=== PATIENT | female | born 1950 | race African-American/Black ===

== ENCOUNTER 2019-06-07 16:30 | Outpatient (RCR) | payer OTHER, MEDICARE, SELFPAY ==
[2019-05-04 09:19] VITALS: PULSE 56; RESP 14; O2SAT 96
--- NOTE | 2019-05-04 09:39 | PCCPR ---
Alma Rosa states her RT forearm area occurs in the last 2 wks currently not bothering her. However she plans to see her PCP for this.
[2019-05-04 09:43] VITALS: PULSE 56
--- NOTE | 2019-06-12 10:42 | PCCPR ---
Delicia called yesterday stating that she was told by her physician not to attend cardiac rehab at this time due to the current Coronavirus outbreak.
--- NOTE | 2019-06-13 09:47 | PCCPR ---
Program is temporarily suspended due to COVID outbreak.
--- NOTE | 2019-06-20 11:24 | PCCPR ---
Called pt due to temporary closure of our dept Spoke with Alma Rosa states she is currently working from home. She has been walking regularly in her yard and driveway. She has attempted using some 2 # wts at home and also has 5 lb weights she felt was too heavy at this time. she was also present for our theraband strength trng. Alma Rosa provided us an email to forward her and information pkg for home exercise. Explained she can call us for questions and we will be calling weekly to check on her and if she has any questions.
--- NOTE | 2019-06-27 10:37 | PCCPR ---
Spoke with Alma Rosa this am. 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 She takes walks outside and has been using her stepper, weights, and doing her stretches. She states her daughter has been keeping her active. Will follow up with Alma Rosa next week.
--- NOTE | 2019-07-04 12:03 | PCCPR ---
Called to check in on patient. Left voicemail. Will continue to follow weekly.
--- NOTE | 2019-07-11 13:47 | PCCPR ---
Weekly update call-No questions or concerns at this time.
--- NOTE | 2019-07-18 13:59 | PCCPR ---
Weekly update call-informed patient of continued closure through the month of July due to the extension of the senior living in place order. No questions at this time.
--- NOTE | 2019-08-02 13:03 | PCCPR ---
Starting Bi-Weekly Calls. Spoke with patient. No questions or concerns at this time.
--- NOTE | 2019-08-16 14:59 | PCCPR ---
Spoke with Alma Rosa she is working and tolerating well. She did start on a new medication and her B/P has been better. She has been walking in or out of doors daily.She has an upcoming apt with her PCP and will discuss returning to rehab as an option..
== END 2019-06-07 23:59 | disposition home or self-care (01) ==
LOC: ANHCPREHAB 16:30
PROVIDERS: Visit Provider Specialist
DX: Z95.1 Presence of aortocoronary bypass graft (principal); I25.2 Old myocardial infarction
CPT/HCPCS: 93798

== ENCOUNTER 2019-11-07 16:30 | Outpatient (RCR) | payer OTHER, MEDICARE, SELFPAY ==
[2019-10-17 17:44] LABS: Glucose Point of Care 100 (65-105)
== END 2019-11-12 11:24 | disposition home or self-care (01) ==
LOC: ANHCPREHAB 16:30
PROVIDERS: Visit Provider Specialist
DX: Z95.1 Presence of aortocoronary bypass graft (principal)
CPT/HCPCS: 93798

== ENCOUNTER → 2020-04-16 16:56 | Outpatient (CLI) | payer OTHER, MEDICARE, SELFPAY ==
--- NOTE | ~2020-04-16 | DEXA_ITS ---
Bone Density Report Name: Delicia Brady Age: 69 Sex: Female Ethnicity: Black Date of : 1950 Indication: osteopenia; monitoring treatment; height loss; asthma or emphysema; postmenopausal Referring Provider: BRIGIDA BAUTISTA Study: Bone densitometry was performed. Exam Date: April 16, 2020 Accession number: [id number] Bone Density: Region BMD T-score Z-score Classification AP Spine (L1-L4) 1.035 -0.1 1.1 Normal Femoral Neck (Left) 0.644 -1.8 -0.8 Osteopenia Total Hip (Left) 0.769 -1.4 -0.6 Osteopenia Femoral Neck (Right) 0.679 -1.5 -0.6 Osteopenia Total Hip (Right) 0.769 -1.4 -0.6 Osteopenia Total Hip Mean 0.769 -1.4 -0.6 Osteopenia World Health Organization criteria for BMD impression classify patients as: Normal (T-score at or above -1.0), Osteopenia (T-score between -1.0 and -2.5), or Osteoporosis (T-score at or below -2.5). 10-year Fracture Risk: FRAX not reported because: Treated for osteoporosis Previous Exams: Region Exam Age BMD T-score BMD Change BMD Change Date g/cm2 vs Baseline vs Previous AP Spine(L1-L4) 04/16/2020 69 1.035 -0.1 0.013 -0.007 02/04/2018 67 1.043 0.0 0.020 0.005 06/26/2015 64 1.038 -0.1 0.015 0.000 08/12/2012 62 1.038 -0.1 0.015 0.015 01/16/2010 59 1.022 -0.2 Total Hip(Left) 04/16/2020 69 0.769 -1.4 -0.009 0.006 02/04/2018 67 0.762 -1.5 -0.015 0.003 06/26/2015 64 0.760 -1.5 -0.018 -0.054* 08/12/2012 62 0.814 -1.1 0.036* 0.036* 01/16/2010 59 0.777 -1.3 Total Hip(Right) 04/16/2020 69 0.769 -1.4 -0.023 -0.008 02/04/2018 67 0.777 -1.4 -0.016 0.002 06/26/2015 64 0.775 -1.4 -0.017 -0.062* 08/12/2012 62 0.838 -0.9 0.045* 0.045* 01/16/2010 59 0.793 -1.2 *Denotes significance at 95% confidence level, LSC for AP Spine = 0.022 g/cm2, LSC for Total Hip = 0.027 g/cm2 Clinical Information Provided by Patient: Is being treated for osteoporosis Has used the following medications: Boniva (i.e. ibandronate), Vitamin D, MTV Has the following medical conditions: Asthma or Emphysema Patient maximum height was 59.0 Menopause Age: 49 No regular weight bearing exercise Drinks caffeinated beverages Onset of menses at age 16 Number of children 2
--- NOTE | ~2020-04-16 | MM_ITS ---
EXAMINATION: MM screening jose m BI w scar HISTORY: Screening TECHNIQUE: Craniocaudal and mediolateral oblique 3-D tomosynthesis images were obtained and synthetic 2-D images were generated. CAD analysis was submitted and interpreted. COMPARISON: Comparison to multiple prior studies sequentially, with oldest reviewed study dated 08/29. BREAST PARENCHYMAL COMPOSITION: There are scattered areas of fibroglandular density. FINDINGS: There is no evidence of suspicious mass, calcification, or architectural distortion to sugg est malignancy in either breast. There has been no suspicious interval change. IMPRESSION: 1. No mammographic evidence of malignancy. 2. Recommend routine screening mammography in one year. BI-RADS Category 1: Negative Reviewed, dictated and finalized at location A. R SAMPLE CLERK
== END ==
PROVIDERS: Visit Provider Obstetrics & Gynecology
DX: Z12.31 Encounter for screening mammogram for malignant neoplasm of breast (principal); Z78.0 Asymptomatic menopausal state; M85.852 Other specified disorders of bone density and structure, left thigh; M85.851 Other specified disorders of bone density and structure, right thigh
CPT/HCPCS: 77063; 77067; 77080

== ENCOUNTER → 2021-08-11 16:42 | Outpatient (CLI) | payer OTHER, MEDICARE, SELFPAY ==
--- NOTE | ~2021-08-11 | MM_ITS ---
EXAMINATION: MM screening jose m BI w scar HISTORY: Screening mammogram TECHNIQUE: Craniocaudal and mediolateral oblique 3-D tomosynthesis images were obtained and synthetic 2-D images were generated. CAD analysis was submitted and interpreted. COMPARISON: 04/16/2020, 02/04/2018, 10/01/2015 bilateral screening mammogram examinations BREAST PARENCHYMAL COMPOSITION: There are scattered areas of fibroglandular density. FINDINGS: Stable circumscribed benign intramammary lymph node in the upper outer right breast. There is no evidence of suspicious mass, calcification, or architectural distortion to suggest malignancy i n either breast. There has been no suspicious interval change. IMPRESSION: 1. No mammographic evidence of malignancy. 2. Recommend routine screening mammography in one year. BI-RADS Category 2: Benign finding(s). Reviewed, dictated and finalized at location A.
== END ==
PROVIDERS: Visit Provider Obstetrics & Gynecology
DX: Z12.31 Encounter for screening mammogram for malignant neoplasm of breast (principal)
CPT/HCPCS: 77063; 77067

== ENCOUNTER → 2023-02-28 15:03 | Outpatient (CLI) | payer MEDICARE, OTHER, SELFPAY ==
--- NOTE | ~2023-02-28 | DEXA_ITS ---
Bone Density Report Name: HAYDEE BOLANOS Age: 72 Sex: Female Ethnicity: Black Date of : 1950 Indication: osteopenia; monitoring treatment; height loss; asthma or emphysema; rheumatoid arthritis; secondary osteoporosis; Referring Provider: BRIGIDA BAUTISTA Study: Bone densitometry was performed. Exam Date: February 28, 2023 Accession number: [id number] Bone Density: Region BMD T-score Z-score Classification AP Spine (L1-L4) 1.064 0.2 1.6 Normal Femoral Neck (Left) 0.667 -1.6 -0.6 Osteopenia Total Hip (Left) 0.768 -1.4 -0.5 Osteopenia Femoral Neck (Right) 0.687 -1.5 -0.4 Osteopenia Total Hip (Right) 0.770 -1.4 -0.5 Osteopenia Total Hip Mean 0.769 -1.4 -0.5 Osteopenia World Health Organization criteria for BMD impression classify patients as: Normal (T-score at or above -1.0), Osteopenia (T-score between -1.0 and -2.5), or Osteoporosis (T-score at or below -2.5). 10-year Fracture Risk: FRAX not reported because: Treated for osteoporosis Previous Exams: Region Exam Age BMD T-score BMD Change BMD Change Date g/cm2 vs Baseline vs Previous AP Spine(L1-L4) 02/28/2023 72 1.064 0.2 0.042* 0.029* 04/16/2020 69 1.035 -0.1 0.013 -0.007 02/04/2018 67 1.043 0.0 0.020 0.005 06/26/2015 64 1.038 -0.1 0.015 0.000 08/12/2012 62 1.038 -0.1 0.015 0.015 01/16/2010 59 1.022 -0.2 Total Hip(Left) 02/28/2023 72 0.768 -1.4 -0.010 -0.001 04/16/2020 69 0.769 -1.4 -0.009 0.006 02/04/2018 67 0.762 -1.5 -0.015 0.003 06/26/2015 64 0.760 -1.5 -0.018 -0.054* 08/12/2012 62 0.814 -1.1 0.036* 0.036* 01/16/2010 59 0.777 -1.3 Total Hip(Right) 02/28/2023 72 0.770 -1.4 -0.023 0.000 04/16/2020 69 0.769 -1.4 -0.023 -0.008 02/04/2018 67 0.777 -1.4 -0.016 0.002 06/26/2015 64 0.775 -1.4 -0.017 -0.062* 08/12/2012 62 0.838 -0.9 0.045* 0.045* 01/16/2010 59 0.793 -1.2 *Denotes significance at 95% confidence level, LSC for AP Spine = 0.022 g/cm2, LSC for Total Hip = 0.027 g/cm2 Clinical Information Provided by Patient: Has rheumatoid arthritis Has secondary osteoporosis Is being treated for osteoporosis Has used the following medications: Boniva (i.e. ibandronate), Vitamin D, MTV
== END ==
PROVIDERS: Visit Provider Obstetrics & Gynecology
DX: M85.89 Other specified disorders of bone density and structure, multiple sites (principal); Z78.0 Asymptomatic menopausal state
CPT/HCPCS: 77080

== ENCOUNTER 2023-03-20 01:26 | Inpatient (IN) | payer MEDICARE, OTHER, SELFPAY ==
[2023-03-20] VITALS (19 sets, daily range): BP systolic 136–255; BP diastolic 61–103; PULSE 60–76; RESP 14–22; TEMP 36–36.6; O2SAT 95–99; BMI 31.4
--- NOTE | ~2023-03-20 | NM_ITS ---
EXAMINATION: NM hepatobiliary wo pharm DATE: 03/22/2023 15:06 INDICATION: Acute cholecystitis with upper abdominal pain COMPARISON: None. TECHNIQUE: 5.2 mCi Tc-99m mebrofenin (Choletec) was administered intravenously. Scintigraphic images of the abdomen were obtained for one hour. At the 1 hour time point, the patient drank 8 oz Ensure, and imaging was continued for 60 minutes. Gallbladder ejection fraction was calculated by the technol ogist. FINDINGS: There is normal clearance of radiotracer from the blood pool. There is homogeneous tracer u ptake by the liver. Activity progresses to the bowel and gallbladder. The gallbladder ejection fract ion (GBEF) is indeterminate with continuing accumulation of activity in the gallbladder following Ens ure administration. Note that with this technique, normal GBEF >= 33%. IMPRESSION: 1. Continuing accumulation of activity in the gallbladder even following Ensure administration which would argue against acute cholecystitis but which would be consistent with gallbladder dysfunction o r chronic cholecystitis in the appropriate clinical setting. Reviewed, dictated and finalized at location A. DRY MANAGER IMPRESSION: 1. Continuing accumulation of activity in the gallbladder even following Ensur e administration which would argue against acute cholecystitis but which would be consistent with gallbladder dysfunction or chronic [facility]ole[facility]stitis [facility].
--- NOTE | ~2023-03-20 | US_ITS ---
EXAMINATION: US abdomen limited DATE: 03/22/2023 08:25 INDICATION: Abdominal pain TECHNIQUE: Multiple grayscale and Doppler ultrasound images of the abdomen were obtained. COMPARISON: CT dated 03/21/2023 FINDINGS: The pancreatic head and body are normal in appearance. The pancreatic tail is not visualized. Liver has normal echogenicity and contour, with a smooth surface. No liver lesion identified. No intrahepat ic biliary duct dilation suspected. Portal venous flow was seen in the hepatopetal, normal direction and has normal Doppler waveform. There is edematous wall thickening of the gallbladder. Dependently l ayering hyperechoic gallbladder sludge but no evident shadowing cholelithiasis. Sonographic Delcid si gn was reported as negative by the radio repair teacher. The common bile duct measures 2 mm which is normal. V isualized proximal inferior vena cava is normal. IMPRESSION: 1. Nonspecific gallbladder wall thickening with gallbladder sludge but no evident shadowing cholelith iasis and with negative sonographic Delcid sign. There is equivocal for either acute or chronic patrice cystitis could also be seen atherosclerotic liver, heart or renal failure or other generalized edema forming states. Could consider HIDA scan for further evaluation as clinically indicated. Reviewed, dictated and finalized at location A. TAL FORENSIC ANALYST IMPRESSION: 1. Nonspecific gallbladder wall thickening with gallbladder sludge but no evide nt shadowing cholelithiasis and with negative sonographic Delcid sign. There is equivocal for either acute or chronic cholecystitis could also be seen atheros clerotic liver, heart or renal failure or other generalized edema forming state s. Could consider HIDA scan for further evaluation as clinically indicated.
--- NOTE | ~2023-03-20 | XR_ITS ---
EXAMINATION: XR chest 2V DATE: 03/20/2023 01:57 INDICATION: Chest pain. TECHNIQUE: Frontal and lateral views of the chest were obtained. COMPARISON: Chest 2 views 02/21/2019 FINDINGS: Alexy B lines are noted, consistent with mild pulmonary edema. No pleural effusion or pneu mothorax. Cardiomegaly is noted. There are median sternotomy wires. IMPRESSION: 1. Mild pulmonary edema. 2. Cardiomegaly. Reviewed, dictated and finalized at location A. WORKER
--- NOTE | ~2023-03-20 | CT_ITS ---
EXAMINATION: CT chest abdomen w con DATE: 03/21/2023 14:41 INDICATION: Abd pain, . TECHNIQUE: Computed tomography (CT) of the chest and abdomen was performed with 100 mL Omnipaque-350 intravenous contrast. Automated exposure control and iterative reconstruction technique were employed . The dose-length product was 489.73 mGy-cm. COMPARISON: None FINDINGS: CHEST: Thoracic aorta: No significant dilation or calcification. Lung parenchyma and airways: Motion artifact in the lungs. Mild septal thickening and scattered somew hat dependent groundglass opacity. Thoracic inlet, axillae and chest wall: Left thyroidectomy. Multinodular residual right thyroid gland , measuring up to 1.3 cm, requiring no additional evaluation at this time. Prominent bilateral axilla ry and bilateral subpectoral lymph nodes, not pathologic by chronic. Mediastinum: No mass or lymphadenopathy. Heart and pericardium: Cardiomegaly. Coronary artery calcifications: Moderate. Pleura: No effusion or mass. Thoracic bones: No acute osseous finding in the chest. ABDOMEN: Liver: Diffusely hypodense parenchyma Biliary/Gallbladder: Mild dilation. Pericholecystic fluid/wall edema. Gallbladder wall hyperemia. Dep endent sludge. No bile duct dilation. Pancreas: No mass or duct dilation. Spleen: 1.5 cm hemangioma Adrenals:No mass. Kidneys: No suspicious mass, obstructing stone, or hydronephrosis. Tiny bilateral hypodensities, too small to characterize but most likely represent cysts. Left midpole cyst. GI tract: Moderate distal esophageal and gastric wall edema. No small or large bowel dilation. Normal appendix. Mesentery/Peritoneum: No ascites, mass, or free air. Retroperitoneum: No mass Soft Tissues: Soft tissues and body wall unremarkable. Abdominal bones: No acute osseous finding in the abdomen. IMPRESSION: Gallbladder hydrops with wall edema/pericholecystic fluid, mucosal hyperemia, and biliary sludge. Thi s may represent cholecystitis in the appropriate clinical context. Correlate with right upper quadran t pain and biliary labs. Consider right upper quadrant ultrasound and biliary scanning. Moderate esophagitis/gastritis. Hepatic steatosis. Mild pulmonary edema. Cardiomegaly. Reviewed, dictated and finalized at location K. RDS TECH IMPRESSION: Gallbladder hydrops with wall edema/pericholecystic fluid, mucosal hyperemia, a nd biliary sludge. This may represent cholecystitis in the appropriate clinical context. Correlate with right upper quadrant pain and biliary labs. Consider r ight upper quadrant ultrasound and biliary scanning. Moderate esophagitis/gastritis. Hepatic steatosis. Mild pulmonary edema. Cardiomegaly.
--- NOTE | 2023-03-20 01:27 | ECG_ITS ---
Measurements Intervals [place] Rate: 60 P: 14 OH: 130 QRS: -45 QRSD: 121 T: 36 QT: 478 QTc: 478 Interpretive Statements SINUS RHYTHM POSSIBLE LEFT ATRIAL ENLARGEMENT [-0.1mV P WAVE IN V1/V2] RIGHT BUNDLE BRANCH BLOCK [120+ ms QRS DURATION, UPRIGHT V1, 40+ ms S IN I/aVL/V4/V5/V6] LEFT ANTERIOR FASCICULAR BLOCK [QRS AXIS <= -45, QR IN I, RS IN II] COMPARED TO ECG 02/21/2019 01:04:24 SINUS RHYTHM NOW PRESENT RIGHT BUNDLE-BRANCH BLOCK NOW PRESENT Electronically Signed On 03-20-2023 14:50:14 ASSOCIATE PRODUCT MANAGER by Shanique Wu M.D.
[2023-03-20 01:47] LABS: Basophils Percent Auto 0.4 % (0.2-1.2); Eosinophils Absolute Auto 0.1 K/mm3 (0-0.3); Eosinophils Percent Auto 1.2 % (0-4.4); Hematocrit 40.1 % (37.0-47.0); Hemoglobin 13.7 g/dL (12.0-15.0); Immature Granulocyte Absolute 0.02 K/mm3 (0.00-0.031); Immature Granulocyte Percent A 0.3 % (0-0.5); Lymphocytes Absolute Auto 1.65 K/mm3 (0.9-3.2); Lymphocytes Percent Auto 22.1 % (18.3-44.2); Mean Corpuscular HGB Conc 34.2 g/dl (32-36); Mean Corpuscular Hemoglobin 31.1 pg (26-34); Mean Corpuscular Volume 91.1 fl (80-100); Mean Platelet Volume 9.9 fl (7.4-10.4); Monocytes Absolute Auto 0.4 K/mm3 (0.1-0.6); Monocytes Percent Auto 5.6 % (2.6-8.5); Neutrophils Absolute Auto 5.3 K/mm3 (1.3-6.7); Neutrophils Percent Auto 70.4 % (45.5-73.1); Platelet Count Result 245 k/mm3 (150-375); Red Cell Distribution Width 13.2 % (11.5-14.5); White Blood Count 7.5 K/mm3 (4.5-10.0)
[2023-03-20 01:58] LABS: Alanine Aminotransferase 36 U/L (6-35); Albumin Level 4.8 g/dL (3.5-5.1); Alkaline Phosphatase 71 U/L (38-126); Anion Gap 11 mmol/L (8-16); Aspartate Amino Transferase 35 U/L (14-36); Bilirubin,Total 0.4 mg/dL (0.2-1.3); Blood Urea Nitrogen 16 mg/dL (7-17); Calcium 9.6 mg/dL (8.4-10.2); Carbon Dioxide 27 mmol/L (22-30); Chloride 107 mmol/L (98-107); Estimated Glomerular Filt Rate 54; Glucose 129 mg/dL (65-110); Lipase 291 U/L (23-300); Potassium 3.9 mmol/L (3.4-5.0); Sodium 145 mmol/L (137-145)
[2023-03-20 02:03] LABS: Partial Thromboplastin Time 25.7 SECONDS (22.3-36.8); Prothrombin Time 13.8 Seconds (11.1-14.7)
[2023-03-20 02:09] LABS: Troponin I < 0.012 ng/mL (0.000-0.034)
[2023-03-20] MEDS: ASPIRIN 81 MG CHEWABLE TABLET 324 MG PO (04:33)
--- NOTE | 2023-03-20 04:36 | PC.NURSE ---
0437 - 1st dose SL Nitro given. Pt rates pain 5/10. BP 255/101 0445 - 2nd dose SL Nitro given. Pt rates pain 4/10. BP 201/103 0450 - 3rd dose SL Nitro given. Pt rates pain 3/10. BP 194/99
[2023-03-20] MEDS: NITROGLYCERIN SL 0.4 MG TABLET SUBLINGUAL (04:37)
[2023-03-20] MEDS: MORPHINE SULFATE (*CRX) 4 MG/ML INJ IV PUSH (04:51)
[2023-03-20 04:52] LABS: Troponin I < 0.012 ng/mL (0.000-0.034)
--- NOTE | 2023-03-20 05:53 | ED.GENADULT ---
HPI - General Adult General Chief complaint: Chest Pain Stated complaint: Chest pain Time Seen by Provider: 03/20/23 04:05 History of Present Illness HPI narrative: Patient is a 9-year-old female who presents emergency department with chief complaint of chest discomfort. Patient reports that she started having pain felt like a tight band around her chest radiating to her back patient states that she had some nausea and vomiting with this the patient reports that the symptoms are not improved by anything Related Data Home Medications Medication Instructions Recorded Confirmed aspirin 81 mg tablet,delayed 81 mg PO DAILY 02/21/19 04/06/22 release (Adult Low Dose Aspirin) atorvastatin 40 mg tablet 40 mg PO HS 02/21/19 04/06/22 clonidine HCl 0.1 mg tablet 0.1 mg PO HS 02/21/19 04/06/22 doxazosin 4 mg tablet 4 mg PO HS 02/21/19 04/06/22 hydroxychloroquine 200 mg tablet 200 mg PO DAILY 02/21/19 04/06/22 losartan 100 mg tablet 100 mg PO DAILY 02/21/19 04/06/22 triamcinolone acetonide 0.1 % 1 applic dental TID PRN Cold Sores 02/21/19 04/06/22 dental paste albuterol sulfate 90 mcg/actuation inhalation 05/04/19 04/06/22 aerosol inhaler (ProAir HFA) furosemide 40 mg tablet (Lasix) 40 mg PO BID 10/18/19 04/06/22 potassium chloride 20 mEq 20 meq PO BID 10/18/19 04/06/22 tablet,extended release carvedilol 25 mg tablet 25 mg PO Q12H 02/19/21 04/06/22 clopidogrel 75 mg tablet 75 mg PO DAILY 02/19/21 04/06/22 diltiazem HCl 240 mg capsule,24 240 mg PO DAILY 02/19/21 04/06/22 hr,extended release (Tiazac) fluticasone propionate 220 1 puff inhalation Q12H 02/19/21 04/06/22 mcg/actuation HFA aerosol inhaler (Flovent HFA) Allergies Allergy/AdvReac Type Severity Reaction Status Date / Time No Known Allergies Allergy Verified 03/20/23 04:00 Review of Systems Review of Systems: A 10 system review of systems was completed on the patient and is negative except for what is stated in the HPI. Nursing and ancillary documentation was reviewed. [facility] Past Medical History Medical History Asthma History of one miscarriage HTN (hypertension) Hyperlipidemia Lupus (systemic lupus erythematosus) Osteoporosis Surgical History Surgical History H/O section x2 H/O dilation and curettage H/O heart bypass surgery S/P partial thyroidectomy Tubal ligation status Family History Family History Mother Acute myocardial infarction Hypertension Father Cerebrovascular accident Hypertension Congestive heart failure Mental illness in member of household Chronic kidney disease Sibling Hypertension Sibling Hypertension Social History Social History Smoking status: Never smoker Second hand tobacco smoke exposure: No Alcohol intake: never Substance use: never Gender identity (if verbalized by the patient): Female Spiritual care concerns: No Agree to blood products: Yes Exam Narrative: GENERAL: Well-appearing, well-nourished, and in no acute distress. HEAD: Normocephalic, atraumatic. EYES: PERRLA and EOMI. ENT: Nares clear, no rhinorrhea or epistaxis. Mucous membranes moist. NECK: Supple. CHEST: Clear to auscultation. No respiratory distress. HEART: Regular rate and rhythm. No murmur heard. Normal peripheral pulses. ABDOMEN: Soft, nontender, nondistended, normal active bowel sounds. EXTREMITIES: Normal range of motion. No edema. SKIN: Warm, dry, no rash. NEURO: No focal deficits. Alert and oriented x3. PSYCH: Normal mood and affect. Course Vital Signs Vital signs: Vital Signs Temperature 36.4 C L 03/20/23 01:29 Pulse Rate 60 03/20/23 01:29 Respiratory Rate 19 03/20/23 01:29 Blood Pressure 155/97 H 03/20/23 01:29 Pu
[2023-03-20 07:51] LABS: Troponin I < 0.012 ng/mL (0.000-0.034)
--- NOTE | 2023-03-20 08:27 | PC.NURSE ---
This RN spoke w/DR. Demarco about pt BP of 203/96 to be given hydralazine. stated he wants her systolic BP to be 180's-190's.
[2023-03-20] MEDS: hydrALAZINE HCL 20 MG/ML VIAL 10 MG IV PUSH (08:46)
--- NOTE | 2023-03-20 11:03 | ADMGEN ---
This patient, Delicia Brady, was admitted to 2 Medical Room 261-01. Patient/family oriented to hospital policies and general routines including ID bracelet, bed and alarms, visiting hours, pain management, procedures, bathroom and other care routines, personal items, smoking policy, room service/diet, and visiting hours. Information on how to activate the Rapid Response Team has been discussed. Patient/Family are encouraged to report perceived risks to care and to ask questions if they do not understand what they are told or what they should do. Report taken from Andrés ELIZONDO in ED
--- NOTE | 2023-03-20 13:45 | PM.IMHP ---
H&P: HPI History of Present Illness Date/Time: 03/20/23 13:45 Chief Complaint: Chest pain. Narrative: This is a very pleasant 72-year-old female with coronary artery disease status post 4 vessel bypass February 2019, hypertension, hyperlipidemia, chronic kidney disease, and systemic lupus erythematosus who presented to the emergency department from home for evaluation of chest pain. The patient provides the following history. Last evening she had [employer] for dinner and sat down to watch television for the evening before going to bed. At about 21:30 however she developed pain in the upper abdominal/lower chest area which she describes as feeling as though a tight band were around that area. She thought maybe it was due to her bra being too tight but it did not improve when she took it off. Shortly thereafter she developed nausea and she reports having several episodes of emesis due to the pain. She became worried given her cardiac history and came to the ED for evaluation. She has never had similar symptoms. She has no known history of gallbladder disease, pancreatitis, or peptic ulcers. She also denies fever, chills, sweats, lightheadedness, exertional chest pain, shortness a breath, and hematemesis. Her symptoms have not returned. In the ED: She was afebrile on arrival. Blood pressure was high, as high as 255/101. Initial troponin was negative. EKG showed a normal sinus rhythm with no ST elevations or depressions. CMP, CBC, and lipase were reviewed and are pretty unremarkable. She received nitroglycerin 0.4 mg sublingual, 4 mg IV morphine, and 10 mg IV hydralazine and she has been without nausea and pain since that time. She is being admitted overnight for close monitoring. Review of Systems Review of Systems: Twelve systems were reviewed and are negative except for as per HPI. [facility] Past Medical History Medical History (Updated 03/20/23 @ 22:02 by Julia Taylor PA-C) Asthma Chronic kidney disease, stage 3 Coronary artery disease Status post 4 vessel bypass in February 2019. Hyperlipidemia Hypertension Osteoporosis Systemic lupus erythematosus Surgical History Surgical History (Updated 03/20/23 @ 13:48 by Julia Taylor PA-C) History of 2 sections History of dilation and curettage History of four vessel coronary artery bypass graft (02/2019) History of partial thyroidectomy History of tubal ligation Family History Family History Mother Acute myocardial infarction Hypertension Father Cerebrovascular accident Hypertension Congestive heart failure Mental illness in member of household Chronic kidney disease Sibling Hypertension Sibling Hypertension Social History Social History (Updated 03/20/23 @ 13:49 by Julia Taylor PA-C) Social History: Surrogate medical decision maker: David Brady, spouse. Code status: Full code. Smoking status: Never smoker Second hand tobacco smoke exposure: No Alcohol intake: never Substance use: never Do You Feel Safe in your Home?: Yes Lack of Transportation: YES Lack of Food: Never True Current Housing: I Have Housing Concerned About Future Housing: No Difficulty Paying Gas/Electric Bills: No Difficulty Paying for Meds: No Currently Unemployed: No Education: Master's Degree or Higher Difficulty w/ Childcare or Family Care: No Additional living arrangements comments: Lives with spouse in [place]. Additional occupation/education comments: [employer]. Spiritual care concerns: No Agree to blood products: Yes Meds Home Medications and Allergies Home Medications Medication Instructions Recorded Confirmed Type aspirin 81 mg tablet,delayed 81 mg PO DAILY 02/21/19 03/20/23 History release (Adult Low Dose Aspirin) atorvastatin 40 mg tablet 40 mg PO HS 02/21/19 03/20/23 History clonidine HCl 0.1 mg tablet 0.1 mg PO HS
[2023-03-20] MEDS: dilTIAZem HCL CD 240 MG CAP.24HR PO (16:58)
[2023-03-20] MEDS: POTASSIUM CHLORIDE 20 MEQ ER TABLET PO (16:59)
[2023-03-20] MEDS: CLOPIDOGREL BISULFATE 75 MG TABLET PO (16:59)
[2023-03-20] MEDS: FUROSEMIDE 40 MG TABLET PO (16:59)
[2023-03-20] MEDS: LOSARTAN POTASSIUM 100 MG TABLET PO (16:59)
[2023-03-20] MEDS: cloNIDine HCL 0.1 MG TABLET PO (20:26)
[2023-03-20] MEDS: carvediloL 25 MG TABLET PO (20:26)
[2023-03-20] MEDS: DOXAZOSIN MESYLATE 4 MG TABLET PO (20:26)
[2023-03-20] MEDS: ATORVASTATIN 40 MG TABLET PO (20:26)
[2023-03-21] VITALS (10 sets, daily range): BP systolic 133–169; BP diastolic 59–67; PULSE 54–62; RESP 18–20; TEMP 36.2–36.6; O2SAT 97–98
[2023-03-21 05:53] LABS: Hemoglobin 12.2 g/dL (12.0-15.0); Mean Corpuscular Hemoglobin 30.8 pg (26-34); Mean Corpuscular Volume 93.4 fl (80-100); Mean Platelet Volume 10.4 fl (7.4-10.4); Platelet Count Result 218 k/mm3 (150-375); Red Blood Count 3.96 M/mm3 (4.2-5.4); Red Cell Distribution Width 13.2 % (11.5-14.5); White Blood Count 6.3 K/mm3 (4.5-10.0)
[2023-03-21 06:02] LABS: Anion Gap 8 mmol/L (8-16); Blood Urea Nitrogen 13 mg/dL (7-17); Calcium 8.7 mg/dL (8.4-10.2); Carbon Dioxide 24 mmol/L (22-30); Chloride 109 mmol/L (98-107); Estimated Glomerular Filt Rate > 60; Glucose 90 mg/dL (65-110); Magnesium 1.8 mg/dL (1.6-2.3); Sodium 141 mmol/L (137-145)
[2023-03-21 06:34] LABS: Thyroid Stimulating Hormone Reflex 0.779 uIU/mL (0.465-4.68)
[2023-03-21] MEDS: CLOPIDOGREL BISULFATE 75 MG TABLET PO (09:36)
[2023-03-21] MEDS: carvediloL 25 MG TABLET PO ×2 (09:36→20:46)
[2023-03-21] MEDS: ASPIRIN 81 MG ENTERIC TABLET PO (09:36)
[2023-03-21] MEDS: POTASSIUM CHLORIDE 20 MEQ ER TABLET PO ×2 (09:36→17:12)
[2023-03-21] MEDS: HYDROXYCHLOROQUINE SULFATE 200 MG TABLET PO (09:37)
[2023-03-21] MEDS: dilTIAZem HCL CD 240 MG CAP.24HR PO (09:37)
[2023-03-21] MEDS: FUROSEMIDE 40 MG TABLET PO ×2 (09:37→17:12)
[2023-03-21] MEDS: LOSARTAN POTASSIUM 100 MG TABLET PO (09:37)
--- NOTE | 2023-03-21 12:09 | PM.IMPN ---
Progress Note: A&P Assessment and Plan (1) Chest pain: Code(s): R07.9 - Chest pain, unspecified Status: Acute Assessment and Plan: resolved from elevated BP troponin negative monitor (2) Upper abdominal pain: Code(s): R10.10 - Upper abdominal pain, unspecified Status: Acute Assessment and Plan: RUQ tenderness with positive Delcid's sign CT AP and US abd pending PRN pain control (3) Hypertensive urgency: Code(s): I16.0 - Hypertensive urgency Status: Acute Assessment and Plan: BP controlled continue home meds (4) Coronary artery disease: Code(s): I25.10 - Atherosclerotic heart disease of [place] coronary artery without angina pectoris Status: Acute (5) Hypertension: Code(s): I10 - Essential (primary) hypertension Status: Acute Assessment and Plan: continue home meds (6) Chronic kidney disease, stage 3: Code(s): N18.30 - Chronic kidney disease, stage 3 unspecified Status: Acute (7) Abdominal pain: Code(s): R10.9 - Unspecified abdominal pain Status: Acute Plan Awaiting Abd and imaging continue close monitoring DVT prophylaxis on Sq lovenox Subjective Date/time seen: 03/21/23 12:09 Interval history: patient complained of abd pain, no chest pain BP better controlled this morning Patient noted that BP is usually elevated and closely follows PCP and cardiology Review of Systems Review of Systems: Twelve systems were reviewed and are negative except for as per HPI. Exam Narrative: General: Well-developed, nontoxic-appearing female sitting up in bed in no distress. Weight: 66 kg. BMI: 31.5. HEENT: Normocephalic, atraumatic. PERRL, EOMI. Sclera anicteric. Oral mucosa moist. Oropharynx clear. Neck: Supple. No JVD. Respiratory: Lungs are clear to auscultation bilaterally. Cardiovascular: Regular rate and rhythm with S1-S2. Gastrointestinal: Abdomen is soft, nontender, and nondistended with positive bowel sounds. Negative Delcid sign. Skin: Warm and dry. No rash or lesions on limited exam. Extremities: No cyanosis, clubbing, or edema. Radial and pedal pulses intact. Neurological: Alert. Cranial nerves 2-12 are grossly intact. No gross focal deficits to casual conversation. Psychiatric: Pleasant and cooperative with normal mood and affect. Judgment and insight intact. Objective Data Vital Signs Vital Signs: Vital Signs - 24 hr 03/20/23 12:38 03/20/23 12:39 03/20/23 15:12 Temperature 97.9 F Pulse Rate 74 Respiratory Rate 16 Blood Pressure 164/78 H 136/61 Pulse Oximetry 97 Oxygen Delivery Room Air 03/20/23 16:00 03/20/23 20:26 03/20/23 20:00 Temperature 97.5 F L Pulse Rate 65 73 69 Respiratory Rate 18 Blood Pressure 176/76 H Pulse Oximetry 96 Oxygen Delivery 03/20/23 20:10 03/20/23 20:00 03/20/23 23:51 Temperature 96.8 F L Pulse Rate 72 64 Respiratory Rate 20 Blood Pressure 166/78 H Pulse Oximetry 97 Oxygen Delivery Room Air 03/21/23 00:00 03/21/23 03:00 03/21/23 04:03 Temperature 97.2 F L Pulse Rate 60 62 57 L Respiratory Rate 18 Blood Pressure 160/67 H Pulse Oximetry 98 Oxygen Delivery 03/21/23 08:00 03/21/23 09:36 03/21/23 12:00 Temperature 97.4 F L 97.6 F Pulse Rate 54 L 54 L 56 L Respiratory Rate 18 20 Blood Pressure 148/61 H 147/66 H Pulse Oximetry 97 97 Oxygen Delivery Intake/Output Intake/Output: Intake & Output 03/18/23 03/19/23 03/20/23 03/21/23 23:59 23:59 23:59 23:59 Intake Total 540 626 Output Total 600 Balance -60 626 Meds/Results Medications: Active Medications Generic Name Dose Route Start Last Admin Trade Name Freq PRN Reason Stop Dose Admin Albuterol 1 puff 03/20/23 14:27 Albuterol Sulfate (*Sp) Aerosol 1 Puff INHALATION PRN PRN Wheezing Aspirin 81 mg 03/21/23 09:00 03/21/23 09:36 Aspirin 81 Mg Enteri
--- NOTE | 2023-03-21 12:13 | PCRCNOTE ---
Window of time for administration has passed. See next scheduled administration.
[2023-03-21] MEDS: POTASSIUM CHLORIDE 20 MEQ PACKET (FOR LIQUID) 40 MEQ PO (17:12)
[2023-03-21] MEDS: PIPERACILLN/TAZ 3.375GM/NS50ML 3.375 GM/50 ML BAG IVPB ×2 (17:30→20:45)
[2023-03-21] MEDS: ATORVASTATIN 40 MG TABLET PO (20:46)
[2023-03-21] MEDS: cloNIDine HCL 0.1 MG TABLET PO (20:46)
[2023-03-21] MEDS: DOXAZOSIN MESYLATE 4 MG TABLET PO (20:46)
[2023-03-21] MEDS: FLUTICASONE PROP 220 MCG (*SP) 12 GM INHALER 1 PUFF INHALATION (20:47)
[2023-03-21] MEDS: ALBUTEROL SULFATE (*SP) AEROSOL 1 PUFF INHALATION (20:52)
[2023-03-22] VITALS (8 sets, daily range): BP systolic 134–175; BP diastolic 62–85; PULSE 51–66; RESP 14–18; TEMP 36.1–36.6; O2SAT 96–100
[2023-03-22] MEDS: PIPERACILLN/TAZ 3.375GM/NS50ML 3.375 GM/50 ML BAG IVPB ×3 (03:55→17:00)
[2023-03-22 05:59] LABS: Basophils Percent Auto 0.6 % (0.2-1.2); Eosinophils Absolute Auto 0.2 K/mm3 (0-0.3); Eosinophils Percent Auto 3.1 % (0-4.4); Hematocrit 35.5 % (37.0-47.0); Hemoglobin 12.1 g/dL (12.0-15.0); Immature Granulocyte Absolute 0.01 K/mm3 (0.00-0.031); Immature Granulocyte Percent A 0.2 % (0-0.5); Lymphocytes Absolute Auto 2.48 K/mm3 (0.9-3.2); Lymphocytes Percent Auto 40.2 % (18.3-44.2); Mean Corpuscular HGB Conc 34.1 g/dl (32-36); Mean Corpuscular Hemoglobin 31.2 pg (26-34); Mean Corpuscular Volume 91.5 fl (80-100); Mean Platelet Volume 10.2 fl (7.4-10.4); Monocytes Absolute Auto 0.5 K/mm3 (0.1-0.6); Monocytes Percent Auto 7.8 % (2.6-8.5); Neutrophils Percent Auto 48.1 % (45.5-73.1); Platelet Count Result 215 k/mm3 (150-375); Red Blood Count 3.88 M/mm3 (4.2-5.4); Red Cell Distribution Width 13.2 % (11.5-14.5); White Blood Count 6.2 K/mm3 (4.5-10.0)
[2023-03-22 06:12] LABS: Alanine Aminotransferase 30 U/L (6-35); Albumin Level 3.4 g/dL (3.5-5.1); Alkaline Phosphatase 56 U/L (38-126); Anion Gap 9 mmol/L (8-16); Aspartate Amino Transferase 30 U/L (14-36); Bilirubin,Total 0.6 mg/dL (0.2-1.3); Blood Urea Nitrogen 8 mg/dL (7-17); Calcium 8.4 mg/dL (8.4-10.2); Carbon Dioxide 23 mmol/L (22-30); Chloride 109 mmol/L (98-107); Estimated Glomerular Filt Rate > 60; Glucose 88 mg/dL (65-110); Potassium 3.3 mmol/L (3.4-5.0); Sodium 141 mmol/L (137-145)
[2023-03-22] MEDS: FUROSEMIDE 40 MG TABLET PO ×2 (09:12→16:58)
[2023-03-22] MEDS: carvediloL 25 MG TABLET PO (09:12)
[2023-03-22] MEDS: POTASSIUM CHLORIDE 20 MEQ ER TABLET PO ×2 (09:13→16:58)
[2023-03-22] MEDS: ASPIRIN 81 MG ENTERIC TABLET PO (09:13)
[2023-03-22] MEDS: CLOPIDOGREL BISULFATE 75 MG TABLET PO (09:13)
[2023-03-22] MEDS: HYDROXYCHLOROQUINE SULFATE 200 MG TABLET PO (09:13)
[2023-03-22] MEDS: LOSARTAN POTASSIUM 100 MG TABLET PO (09:13)
[2023-03-22] MEDS: dilTIAZem HCL CD 240 MG CAP.24HR PO (09:13)
[2023-03-22] MEDS: ENOXAPARIN 40 MG/0.4 ML SYRINGE SUB-Q (09:14)
--- NOTE | 2023-03-22 09:58 | PM.CNGS ---
Assessment and Plan Assessment and plan (1) Biliary colic: Code(s): K80.50 - Calculus of bile duct without cholangitis or cholecystitis without obstruction Status: Acute Assessment and Plan: The patient's presentation of RUQ abdominal and chest pain is consistent with biliary colic. CT and US results reviewed and are equivocal for acute versus chronic cholecystitis with gallbladder sludge. No evident cholelithiasis on ultrasound or CT. HIDA scan ordered. Her abdominal pain has resolved. She has mild tenderness in the RUQ but no peritoneal signs. WBC and LFTS normal. She was tolerating her diet this morning without any recurrent symptoms. Discussed nonoperative and surgical treatment options with the patient in detail. Patient would prefer trying to set up her surgery as an outpatient. Since she is currently taking clopidogrel and her abdominal pain has resolved, it would be reasonable to try advancing her diet and discharging her when medically stable on a low fat diet. We will set her up as an outpatient for a laparoscopic cholecystectomy, possible open, under general anesthesia by Dr. Lyons. We discussed the recommendations of following a low fat diet until she has her surgery. (2) Sludge in gallbladder: Code(s): K82.8 - Other specified diseases of gallbladder Status: Acute (3) Antiplatelet or antithrombotic long-term use: Code(s): Z79.02 - custodial (current) use of antithrombotics/antiplatelets Status: Acute Assessment and Plan: Currently taking clopidogrel, which increases bleeding risks for surgery. Would be ideal to have this held for at least 5 days prior to proceeding with a cholecystectomy, which we can plan as an outpatient. See plan above. (4) Coronary artery disease: Code(s): I25.10 - Atherosclerotic heart disease of [place] coronary artery without angina pectoris Status: Chronic Assessment and Plan: S/p CABG in February 2019. Follows with Dr. Allen as her [employer]. (5) Chronic kidney disease, stage 3: Code(s): N18.30 - Chronic kidney disease, stage 3 unspecified Status: Chronic (6) Hypertension: Code(s): I10 - Essential (primary) hypertension Status: Chronic Assessment and Plan: Presented with hypertensive urgency and has improved. BP more controlled. Continue management per Hospitalist. (7) Systemic lupus erythematosus: Code(s): M32.9 - Systemic lupus erythematosus, unspecified Status: Chronic Assessment and Plan: Patient takes hydroxychloroquine for her lupus. Plan I have discussed the patient's case and plan of care with Dr. Lyons. Thank you for allowing us to see the patient in consultation and we will continue to follow along with you. History of Present Illness Consult details Consult date: 03/22/23 Reason for consult: other (Gallbladder hydrops on imaging, possible acute cholecystitis) Requesting physician: Lynne Aggarwal MD Narrative: This is a 72-year-old woman with a history of coronary artery disease status post four-vessel CABG on clopidogrel, lupus, asthma, and hypertension, who presented to the emergency department with complaints of right-sided chest pain, nausea, and vomiting. The patient developed a ?banding-like? pain underneath her right ribs after eating fried chicken 3 nights ago. Her pain progressively worsened throughout the night and she developed nausea and vomiting. She denies ever having this pain in the past. She was concerned this was related to a cardiac issue and presented to the ER for further evaluation on 03/20/23. Labs showed a normal white blood cell count and normal LFTs. Troponin negative x3. Chest x-ray showed mild pulmonary edema and cardiomegaly. She was afebrile in the ED. Her blood pressure was as high as 255/101 in the ER. EKG without any ischemic changes. She received nitroglycerin sublingual and IV morphine. Following these medications, her pain improved
--- NOTE | 2023-03-22 12:42 | PM.IMPN ---
Progress Note: A&P Assessment and Plan (1) Chest pain: Code(s): R07.9 - Chest pain, unspecified Status: Acute Assessment and Plan: resolved from elevated BP troponin negative monitor (2) Upper abdominal pain: Code(s): R10.10 - Upper abdominal pain, unspecified Status: Acute Assessment and Plan: abd pain improving CT AP showed GB hydrops with edema andd pericholecystic fluid, mucosal hyperemia and biliary sludge US Abd showed non specific GB wall thicjening and sludge, negative delcid's sign HIDA scan pending continue Zosyn adn monitor cultures GEn surgery following, plan per result of HIDA scan (3) Hypertensive urgency: Code(s): I16.0 - Hypertensive urgency Status: Acute Assessment and Plan: BP better controlled patient has Hypertension difficult to controlled at baseline and she follows closely with her PCP and cardiology, stated that her bP lives around 160-170 SBP despite being on multiple meds continue home meds (4) Coronary artery disease: Code(s): I25.10 - Atherosclerotic heart disease of [place] coronary artery without angina pectoris Status: Chronic (5) Hypertension: Code(s): I10 - Essential (primary) hypertension Status: Chronic Assessment and Plan: continue home meds (6) Chronic kidney disease, stage 3: Code(s): N18.30 - Chronic kidney disease, stage 3 unspecified Status: Chronic Plan Awaiting Abd and imaging continue close monitoring DVT prophylaxis on Sq lovenox Subjective Date/time seen: 03/22/23 12:42 Interval history: patient complained of abd pain, no chest pain BP better controlled this morning Patient noted abd pain improved markedly HIDA scan pending Gen surgery consulted Review of Systems Review of Systems: Twelve systems were reviewed and are negative except for as per HPI. Exam Narrative: General: Well-developed, nontoxic-appearing female sitting up in bed in no distress. Weight: 66 kg. BMI: 31.5. HEENT: Normocephalic, atraumatic. PERRL, EOMI. Sclera anicteric. Oral mucosa moist. Oropharynx clear. Neck: Supple. No JVD. Respiratory: Lungs are clear to auscultation bilaterally. Cardiovascular: Regular rate and rhythm with S1-S2. Gastrointestinal: Abdomen is soft, nontender, and nondistended with positive bowel sounds. Negative Delcid sign. Skin: Warm and dry. No rash or lesions on limited exam. Extremities: No cyanosis, clubbing, or edema. Radial and pedal pulses intact. Neurological: Alert. Cranial nerves 2-12 are grossly intact. No gross focal deficits to casual conversation. Psychiatric: Pleasant and cooperative with normal mood and affect. Judgment and insight intact. Objective Data Vital Signs Vital Signs: Vital Signs - 24 hr 03/21/23 15:57 03/21/23 16:00 03/21/23 19:32 Temperature 97.8 F 97.8 F Pulse Rate 55 L 56 L 56 L Respiratory Rate 20 20 Blood Pressure 133/59 L 169/64 H Pulse Oximetry 97 97 Oxygen Delivery 03/21/23 20:00 03/22/23 00:00 03/22/23 04:00 Temperature 97.6 F 96.9 F L Pulse Rate 57 L 51 L 57 L Respiratory Rate 18 18 Blood Pressure 134/65 143/62 H Pulse Oximetry 96 98 Oxygen Delivery 03/21/23 20:00 03/22/23 00:00 03/22/23 04:00 Temperature Pulse Rate 57 L 52 L 65 Respiratory Rate 18 Blood Pressure Pulse Oximetry 98 Oxygen Delivery Room Air 03/22/23 09:11 03/22/23 09:12 Temperature 97 F L Pulse Rate 54 L 54 L Respiratory Rate 14 Blood Pressure 175/85 H Pulse Oximetry 100 Oxygen Delivery Intake/Output Intake/Output: Intake & Output 03/19/23 03/20/23 03/21/23 03/22/23 23:59 23:59 23:59 23:59 Intake Total 540 1910 680 Output Total 600 1350 900 Balance -60 560 -220 Meds/Results Medications: Active Medications Generic Name Dose Route Start Last Admin Trade Name Freq PRN Reason Stop Dose Admin Albuterol 1 puff 03/20/23 14:27
--- NOTE | 2023-03-22 16:57 | PM.DS ---
DS: Admitting Diagnosis Discharge Date 03/22/23 Admitting Diagnosis Hypertensive urgency DS: Discharge Diagnosis Discharge Diagnosis (1) Hypertensive urgency: Code(s): I16.0 - Hypertensive urgency Status: Acute DS: Summary Hospital Course Hospital Course: This is a very pleasant 72-year-old female with coronary artery disease status post 4 vessel bypass February 2019, hypertension, hyperlipidemia, chronic kidney disease, and systemic lupus erythematosus who presented to the emergency department from home for evaluation of chest pain. The patient provides the following history. Last evening she had [employer] for dinner and sat down to watch television for the evening before going to bed. At about 21:30 however she developed pain in the upper abdominal/lower chest area which she describes as feeling as though a tight band were around that area. She thought maybe it was due to her bra being too tight but it did not improve when she took it off. Shortly thereafter she developed nausea and she reports having several episodes of emesis due to the pain. She became worried given her cardiac history and came to the ED for evaluation. She has never had similar symptoms. She has no known history of gallbladder disease, pancreatitis, or peptic ulcers. She also denies fever, chills, sweats, lightheadedness, exertional chest pain, shortness a breath, and hematemesis. Her symptoms have not returned. In the ED: She was afebrile on arrival. Blood pressure was high, as high as 255/101. Initial troponin was negative.? EKG showed a normal sinus rhythm with no ST elevations or depressions. CMP, CBC, and lipase were reviewed and are pretty unremarkable. She received nitroglycerin 0.4 mg sublingual, 4 mg IV morphine, and 10 mg IV hydralazine and she has been without nausea and pain since that time. She is being admitted overnight for close monitoring. Ct scan showed possible GB hydrops and possible acute cholecystitis, US showed questionable acute cholecystitis. HIDA scan showed chronic cholecystitis vs GB dysfunction Surgery evaluated and noted that will scheduled for Cholecystectomy outpatient Patient discharged on 5 more days of Abx to completed 7 days total BP controlled on irving regimen, she does have recalcitrant hypertension whcih she follows closely with PCP and cardiology for. Chest pain resolved F/u with PCP in 3-5 days, f/u gen surgery as intructed Assessment and Plan (1) Chest pain: ?Code(s): R07.9 - Chest pain, unspecified ?Status:?Acute ?Assessment and Plan: resolved from elevated BP troponin negative monitor (2) Upper abdominal pain: ?Code(s): R10.10 - Upper abdominal pain, unspecified ?Status:?Acute ?Assessment and Plan: abd pain improving CT AP showed GB hydrops with edema andd pericholecystic fluid, mucosal hyperemia and biliary sludge US Abd showed non specific GB wall thicjening and sludge, negative paula's sign HIDA scan pending continue Zosyn adn monitor cultures GEn surgery following, plan per result of HIDA scan (3) Hypertensive urgency: ?Code(s): I16.0 - Hypertensive urgency ?Status:?Acute ?Assessment and Plan: BP better controlled patient has Hypertension difficult to controlled at baseline and she follows closely with her PCP and cardiology, stated that her bP lives around 160-170 SBP despite being on multiple meds continue home meds (4) Coronary artery disease: ?Code(s): I25.10 - Atherosclerotic heart disease of [place] coronary artery without angina pectoris ?Status:?Chronic (5) Hypertension: ?Code(s): I10 - Essential (primary) hypertension ?Status:?Chronic ?Assessment and Plan: continue home meds (6) Chronic kidney disease, stage 3: ?Code(s): N18.30 - Chronic kidney disease, stage 3 unspecified ?Status:?Chronic Time Spent with Patient Time attestation: Total time spent providing and/or coordinating discharge services: DS:
== END 2023-03-22 18:00 | disposition home or self-care (01) | DRG 445 ==
LOC: ANHED 07:22 → ANH2MED 10:12
PROVIDERS: Physician Assistant; Admitting Provider Student in an Organized Health Care Education/Training Program; Emergency Provider Emergency Medicine; Visit Provider Internal Medicine
DX: K81.0 Acute cholecystitis (principal); K82.1 Hydrops of gallbladder; K81.1 Chronic cholecystitis; K82.8 Other specified diseases of gallbladder; I16.0 Hypertensive urgency; R07.9 Chest pain, unspecified; I25.10 Atherosclerotic heart disease of native coronary artery without angina pectoris; I12.9 Hypertensive chronic kidney disease with stage 1 through stage 4 chronic kidney disease, or unspecified chronic kidney disease; N18.30 Chronic kidney disease, stage 3 unspecified; E78.5 Hyperlipidemia, unspecified; J45.909 Unspecified asthma, uncomplicated; M32.9 Systemic lupus erythematosus, unspecified; M81.0 Age-related osteoporosis without current pathological fracture; Z95.1 Presence of aortocoronary bypass graft; Z79.82 Long term (current) use of aspirin; Z79.02 Long term (current) use of antithrombotics/antiplatelets
CPT/HCPCS: 36415; 71046; 71260; 74160; 76705; 78226; 80048; 80053; 83690; 83735; 84443; 84484; 85025; 85027; 85610; 85730; 87040; 93005; 94640; 96374; 96375; 99285; A9270; A9537; G0378; J0360; J1650; J2270; J2543; Q9967

== ENCOUNTER 2023-04-14 13:30 | Outpatient (CLI) | payer MEDICARE, OTHER, SELFPAY ==
[2023-04-14 14:13] LABS: Amylase 117 U/L (30-110)
== END 2023-04-14 13:31 | disposition home or self-care (01) ==
LOC: ANHSURGERY 13:42
PROVIDERS: Visit Provider Surgery
DX: K81.1 Chronic cholecystitis (principal); Z01.818 Encounter for other preprocedural examination
CPT/HCPCS: 36415; 82150

== ENCOUNTER 2023-04-18 01:38 | Day surgery (SDC) | payer MEDICARE, OTHER, SELFPAY ==
[2023-04-14 10:20] VITALS: BMI 30.3
--- NOTE | 2023-04-14 10:34 | PC.NURSE ---
PRE-OP INSTRUCTIONS, PLEASE READ CAREFULLY Report to the Outpatient Waiting Room, entrance under the green pavilion located off [facility], at time _1130_ on date _04/18/23_. Planned Procedure Time: __1:30__. Time changes happen often and if your time is changed the preop area will call you the afternoon before. - You and your visitor will be asked to self-screen and do not enter if you have any COVID symptoms. - A mask is optional within the hospital at this time. Patients may have clear liquids (water, carbonated beverages, clear teas, apple juice) until 3 hours prior to surgery (1030 AM) with a maximum of 20 ounces. - No food from midnight until time of surgery Take the following medications with a SIP of water the morning of surgery: _CARVEDILOL, DILTIAZEM, FLOVENT INHALER, & ALBUTEROL INHALER IF NEEDED_ DO NOT STOP ANY OF YOUR OTHER PRESCRIPTION MEDICATIONS PRIOR TO SURGERY ?EXCEPT THE FOLLOWING Medications to discontinue per physician _PT STATES LAST DOSE OF PLAVIX WAS 03/20/23_ Please no make-up, nail mongolian, hairspray, perfume, deodorant, or body powder the day of surgery. No jewelry (including any body piercings) or valuables the day of surgery, leave them at home. Please take a shower or bath the night before, or the morning of, surgery with an antibacterial soap. Wear comfortable, loose fitting clothing. - Jewelry must be removed prior to entering the operating room. Rings and piercings that are not removed may be cut off. - The hospital will not accept responsibility for valuables. - Please leave all valuables, including medications, at home the day of surgery. If you are going home after surgery, a licensed concrete mixing truck driver must drive you home. - NO public transportation without another adult if you receive anesthesia. - We recommend that an adult stay with you for 24 hours following discharge. - We also recommend that you do not drive, make important decision, drink alcoholic beverages, or take any drugs that were not prescribed by your health care provider for at least 24 hours after your discharge time. Follow any additional instructions given to you from your surgeon. If you or anyone in your household have experienced Covid symptoms in the past week, please notify your surgeon or the nurse liaison at the phone number below for possible testing. Telephone instructions given to _PATIENT_and asked if any additional questions and then verbalized understanding. Patient advised to call surgeon office or pre surgery nurse liaison [phone] if any additional questions.
[2023-04-18] VITALS (11 sets, daily range): BP systolic 94–180; BP diastolic 57–76; PULSE 40–60; RESP 14–20; TEMP 36.2–36.3; O2SAT 94–100
--- NOTE | 2023-04-18 10:37 | WPDHPUPDATE1 ---
History and Physical Update Update Date/Time: 04/18/23 10:37 History and Physical has been reviewed, including an updated exam of the patient. There are NO changes in the patient's condition. Risks, benefits, and alternatives have been discussed and questions answered. Patient agrees to proceed with procedure.
[2023-04-18] MEDS: LACTATED RINGERS 1,000 ML 30 ML IV CONT (12:20)
[2023-04-18] MEDS: ACETAMINOPHEN 500 MG TABLET 1000 MG PO (12:20)
[2023-04-18] MEDS: KETOROLAC 15 MG/ML VIAL (*BKC) IV PUSH (12:20)
--- NOTE | 2023-04-18 13:22 | WPDANESEPPF ---
Anes - Initial Pre Proc Eval Procedure: Operation Date: 04/18/23 13:30 Proposed Procedures p Laparoscopic Cholecystectomy - Roxana Lyons MD Date/Time: 04/18/23 13:22 Surgeon: Roxana Lyons MD Pre Op Diagnosis: chronic cholecystitis Patient Data Age: 72 Gender: F Height: 1.45 m Weight: 64.5 kg Last Vital Signs Temp 36.2 C L 04/18/23 12:42 Pulse 57 L 04/18/23 12:42 Resp 14 04/18/23 12:42 BP 180/76 H 04/18/23 12:42 Pulse Ox 100 04/18/23 12:42 O2 Del Method Room Air 04/18/23 12:42 Allergies Allergy/AdvReac Type Severity Reaction Status Date / Time No Known Allergies Allergy Verified 04/18/23 12:49 Home Medications Medication Instructions Recorded Confirmed Type aspirin 81 mg tablet,delayed 81 mg PO DAILY 02/21/19 04/14/23 History release (Adult Low Dose Aspirin) atorvastatin 40 mg tablet 40 mg PO HS 02/21/19 04/14/23 History clonidine HCl 0.1 mg tablet 0.1 mg PO HS 02/21/19 04/14/23 History doxazosin 4 mg tablet 4 mg PO HS 02/21/19 04/14/23 History hydroxychloroquine 200 mg tablet 200 mg PO DAILY 02/21/19 04/14/23 History losartan 100 mg tablet 100 mg PO DAILY 02/21/19 04/14/23 History triamcinolone acetonide 0.1 % 1 applic TID PRN Cold Sores 02/21/19 04/14/23 History dental paste albuterol sulfate 90 mcg/actuation See Rx Instructions .Route 05/04/19 04/14/23 History aerosol inhaler (ProAir HFA) .COMPLEX PRN Wheezing furosemide 40 mg tablet (Lasix) 40 mg PO BID 10/18/19 04/14/23 History potassium chloride 20 mEq 20 meq PO BID 10/18/19 04/14/23 History tablet,extended release ibandronate 150 mg tablet (Boniva) 150 mg PO MONTHLY #3 tabs 01/29/20 04/14/23 Rx carvedilol 25 mg tablet 25 mg PO Q12H 02/19/21 04/18/23 History clopidogrel 75 mg tablet 75 mg PO DAILY 02/19/21 04/14/23 History diltiazem HCl 240 mg capsule,24 240 mg PO DAILY 02/19/21 04/18/23 History hr,extended release (Tiazac) fluticasone propionate 220 1 puff inhalation Q12H 02/19/21 04/14/23 History mcg/actuation HFA aerosol inhaler (Flovent HFA) Patient hx anesthesia problems: none Family hx anesthesia problems: none Results Review: All pre-operative results and documents have been reviewed as part of the pre-operative evaluation. [facility] Past Medical History Medical History Asthma Chronic kidney disease, stage 3 Coronary artery disease Status post 4 vessel bypass in February 2019. Hyperlipidemia Hypertension Osteoporosis Systemic lupus erythematosus Surgical History Surgical History History of 2 sections History of dilation and curettage History of four vessel coronary artery bypass graft (02/2019) History of partial thyroidectomy History of tubal ligation Family History Family History Mother Acute myocardial infarction Hypertension Father Cerebrovascular accident Hypertension Congestive heart failure Mental illness in member of household Chronic kidney disease Sibling Hypertension Sibling Hypertension Social History Social History Social History: Surrogate medical decision maker: David Brady, spouse. Code status: Full code. Smoking status: Never smoker Second hand tobacco smoke exposure: No Alcohol intake: never Substance use: never Substance use type: does not use Do You Feel Safe in your Home?: Yes Lack of Transportation: YES Lack of Food: Never True Current Housing: I Have Housing Concerned About Future Housing: No Difficulty Paying Gas/Electric Bills: No Difficulty Paying for Meds: No Currently Unemployed: No Education: Master's Degree or Higher Difficulty w/ Childcare or Family Care: No Living arrangements: with family Additional living arrangements comments: Lives with spous
[2023-04-18] MEDS: ceFAZolin 2 GM/D5W 50 ML 2 GM/50 ML BAG IVPB (13:29)
[2023-04-18] MEDS: BUPIVACAINE/EPINEPHRINE 0.5% 30 ML VIAL INFILTRATE (13:57)
--- NOTE | 2023-04-18 14:24 | P.OP_ITS ---
Procedure Note - Detailed Date of Procedure 04/18/23 Pre-op Diagnosis chronic cholecystitis Post-op Diagnosis Same Procedure Performed Laparoscopic cholecystectomy Surgeon Roxana Lyons MD Anesthesia General Indications 72-year-old female presented to the office complaining of postprandial right upper quadrant abdominal pain associated with nausea and vomiting. Workup including imaging significant for cholecystitis. Findings cholecystitis Description of Procedure The patient was taken to the operating room placed in the supine position. After adequate induction of general anesthesia, the patient was prepped and draped in normal sterile fashion. A time-out was then performed to verify the patient's identity as well as the procedure being performed. I then made a 5 mm incision in the infraumbilical region. Through this, a Veress needle was placed into the peritoneal cavity and CO2 gas was then insufflated. After adequate pneumoperitoneum was achieved, the Veress needle was removed and a 5 mm optiview trocar was placed through this incision under direct visualization. I then placed the laparoscope through this trocar site and under direct visualization placed a further 12 mm subxiphoid port as well as 2 additional 5 mm ports in the right upper abdomen. The gallbladder was then identified and was noted to be moderately inflamed and distended. I was able to place a grasper at the dome of the gallbladder and this was retracted anterior and cephalad up over the liver. A 2nd retractor was then placed at the infundibulum and retracted laterally, this allowed visualization of the triangle of Calot. I then was able to visualize the cystic duct in its entirety from its proximal insertion into the gallbladder, to its distal junction with the common hepatic/common bile duct junction. At this point, I carefully skeletonized the proximal cystic duct with the [place] dissector. I then clipped and transected the proximal cystic duct. Next I visualized the cystic artery. Again the artery was skeletonized, clipped, and transected. I then used the Bovie cautery to take down the peritoneal attachments of the gallbladder off the liver bed. This was somewhat difficult given the amount of inflammation in the posterior space. Once the gallbladder specimen was completely detached, an endo-pouch was placed through the 12 mm port site. I then placed the gallbladder specimen into the Endo pouch and removed the endo-pouch from the 12 mm port site. The specimen will now be sent to pathology for further review. I then copiously irrigated the right upper quadrant. Some mild oozing was noted in the liver bed and this was controlled with the bovie cautery. Hemostasis was noted in the liver bed, the clips were noted to be in good position on both the cystic duct stump and the cystic artery stump. No other pathology was noted in the right upper quadrant. I then moved the laparoscope to the subxiphoid port. No iatrogenic injury or other pathology was noted in the lower abdomen. I then closed the 12 mm trocar site under direct visualization using the Dez cone and 0 Vicryl suture. At this point, the abdomen was desufflated and all ports removed. All port sites w ere then closed with 4.O Monocryl subcuticular sutures. Dermabond was placed on each incision. The patient tolerated the procedure well, was extubated in the operating room postoperative and will be transferred to the recovery room in stable condition Estimated Blood Loss 100 Drains No Packing No Pathology Yes Complications No immediate complications Condition Stable Disposition PACU [facility] Billing Surgery - Charge Forward: Surgery Billing
--- NOTE | 2023-04-18 15:01 | SUR.PHASEI ---
1500: Simple mask removed.
--- NOTE | 2023-04-18 15:22 | ECG_ITS ---
Measurements Intervals [place] Rate: 44 P: 14 MS: 142 QRS: -40 QRSD: 117 T: 26 QT: 495 QTc: 428 Interpretive Statements SINUS BRADYCARDIA LEFT AXIS DEVIATION LOW QRS VOLTAGE IN PRECORDIAL LEADS RIGHT BUNDLE BRANCH BLOCK INFERIOR INFARCT, AGE INDETERMINATE BASELINE ARTIFACT- I, II, III, AVL, AVF, V3, V5 ABNORMAL ECG COMPARED TO ECG 03/20/2023 01:35:42 SINUS BRADYCARDIA NOW PRESENT Electronically Signed On 04-18-2023 17:04:28 [employer] MANAGER by Vern Campbell D.O.
== END 2023-04-18 16:50 | disposition home or self-care (01) ==
PROVIDERS: Visit Provider Surgery
PROC: 0FT44ZZ Resection of Gallbladder, Percutaneous Endoscopic Approach (ICD-10-PCS; CPT 47562; principal; 2023-04-18 13:30)
DX: K80.10 Calculus of gallbladder with chronic cholecystitis without obstruction (principal); E78.5 Hyperlipidemia, unspecified; J45.909 Unspecified asthma, uncomplicated; I12.9 Hypertensive chronic kidney disease with stage 1 through stage 4 chronic kidney disease, or unspecified chronic kidney disease; N18.30 Chronic kidney disease, stage 3 unspecified; M81.0 Age-related osteoporosis without current pathological fracture; M32.9 Systemic lupus erythematosus, unspecified; E66.9 Obesity, unspecified; Z68.30 Body mass index [BMI] 30.0-30.9, adult; Z79.82 Long term (current) use of aspirin; Z79.51 Long term (current) use of inhaled steroids; Z79.02 Long term (current) use of antithrombotics/antiplatelets; Z98.890 Other specified postprocedural states; Z95.1 Presence of aortocoronary bypass graft; Z82.49 Family history of ischemic heart disease and other diseases of the circulatory system
CPT/HCPCS: 47562; 88304; 93005; A9270; J0690; J1100; J1596; J1885; J2250; J2405; J2704; J2710; J3010; J7030; J7120

== ENCOUNTER 2024-03-29 16:15 | Outpatient (RCR) | payer MEDICARE, OTHER, SELFPAY | END 2024-03-29 23:59 | disposition home or self-care (01) | LOC: ANHCPREHAB 16:15 | PROVIDERS: Visit Provider Specialist | DX: Z98.61 Coronary angioplasty status (principal) | CPT/HCPCS: 93798 ==

== ENCOUNTER 2024-10-08 16:04 | Emergency (ER) | payer MEDICARE, OTHER, SELFPAY ==
--- NOTE | ~2024-10-08 | CT_ITS ---
EXAMINATION: CT brain wo con DATE: 10/08/2024 19:15 INDICATION: headache, hypertension . TECHNIQUE: Computed tomography (CT) of the head was performed without intravenous contrast. The mA wa s adjusted according to patient size. Iterative reconstruction technique was employed. The dose-lengt h product was 605.33 mGy-cm. COMPARISON: 05/03/2005. FINDINGS: No acute intracranial hemorrhage or extra-axial fluid collection. No hydrocephalus, mass, or herniation. No acute ischemic infarct. Unremarkable dural venous sinus attenuation. No acute osseous abnormality. The aerated spaces are clear. Mild atrophy and chronic white matter change. Atherosclerotic intracranial calcification. Bilateral l ens replacements. IMPRESSION: No acute intracranial process. Reviewed, dictated and finalized at location K.
--- NOTE | ~2024-10-08 | XR_ITS ---
EXAMINATION: XR chest 2V Exam Date/Time: 10/08/2024 17:25 CDT HISTORY: dizziness Comparison: 03/20/2023. RESULT: Lines, tubes, and devices: Intact sternotomy wires. Coronary stenting. Cholecystectomy clips Lungs and pleura: Clear. Cardiomediastinal silhouette: Stable. Other: No acute osseous or upper abdominal finding. IMPRESSION: No acute cardiopulmonary process. Reviewed, dictated and finalized at location K.
--- OUTSIDE RECORDS SUMMARY | 2024-10-08 16:08 | XMS_ITS | Clinical Summary ---
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 Gender Identity Not on file Sexual Orientation Not on file Last Filed Vital Signs Vital Sign Reading Time Taken Comments Blood Pressure 159/77 01/09/2021 7:31 PM CDT Pulse 54 01/09/2021 7:31 PM CDT Temperature 36.7 C (98.1 F) 01/09/2021 7:31 PM CDT Respiratory Rate 20 01/09/2021 7:31 PM CDT Oxygen Saturation 98% 01/09/2021 7:31 PM CDT Inhaled Oxygen Concentration - - Weight 63.5 kg (140 lb) 01/09/2021 7:31 PM CDT Height 144.8 cm (4' 9) 01/09/2021 7:31 PM CDT Body Mass Index 30.3 01/09/2021 7:31 PM CDT Plan of Treatment Health Maintenance Due Date Last Done Comments BREAST CANCER SCREENING 1992 COLORECTAL SCREENING 1997 Colorectal Cancer Screening 1997 FIT-DNA Q 3 years 1997 FIT/FOBT Q 1 year 1997 Flex Sig/CT Colonography Q 5 years 1997 RSV VACCINE (60+ or ) (1 - Risk 60-74 years 1-dose series) 2012 OSTEOPOROSIS SCREENING 2017 DTAP/TDAP/TD VACCINES (2 - T d or Tdap) 04/24/2024 04/24/2014, 04/24/2013 INFLUENZA VACCINE (#1) 2024 0, 02/02/2018, 03/10/2017, Additional history exists ZOSTER VACCINE Completed 02/17/2019, 11/20, 12/07/2018, Additional history exists PNEUMOCOCCAL VACCINE 50+ YEARS Completed 11/23/2019 , 09/08/2018 Insurance [employer] CHOICE POS II MEDICARE
--- OUTSIDE RECORDS SUMMARY | 2024-10-08 16:09 | XMS_ITS | Encounter Summary ---
Author Organization [facility] Address [address] [place] [address] Phone Care Team Providers Care Machine Tailer Name Role Phone Raciel Jimenez MD Primary Care Provider + Richard HAMILTON MD, Lux Vazquez Unavailable John Allen MD Unavailable [phone] Drake Hernandez MD Unavailable [phone] Ashok Hernandez MD Unavailable [phone] Encounter Details Date Type Department Care Team (Late st Contact Info) Description 08/10/2024 Results Follow-Up [facility] [address] [place] [address] Smitha Kruger PA [address] [place] [address] Urinalysis reflex to microscopic, Erythrocyte sedimentation rate, CBC with auto differential, Additional followed-up results: 6 Social History Tobacco Use Types Packs/Day Years Used Date Smoking Tobacco: Never Smokeless Tobacco: Never Alcohol Use Standard Drinks/Week Comments No 0 (1 standard drink = 0.6 oz pur e alcohol) AUDIT-C Answer Date Recorded Q1: How often do you have a drink containing alcohol? Never 07/13/2024 Q2: How many drinks containi ng alcohol do you have on a typical day when you are drinking? Patient does not drink Q3: How often do you have si x or more drinks on one occasion? Never 07/13/2024 PHQ-2 Answer Date Recorded PHQ-2 Total Score (If total score is 3 or more points, staff should administer the PHQ-9) 0 01/02/2024 Personal Safety Answer Date Recorded Have you ever been in or are you currently in a harmful physical or emotional relationship or is someone making you feel afraid or unsafe? 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 documented in this encounter Plan of Treatment Not on file documented as of this encounter Visit Diagnoses Not on filedocumented in this encounter Care Teams Machine Tailer Relationship Specialty Start Date End Date Raciel Jimenez MD [address] [place] [address] PCP - General 06/18/16 Lux Ramos III, MD [address] [place] [address] Rheumatology 04/04/17 John Allen MD [address] [place] [address] Consulting Physician Cardiology 05/16/19 Drake Hernandez MD [facility] [place] [address] Referring Physician Gastroenterology 04/10/21 Ashok Hernandez MD [facility] [place] [address] Consulting Physician Rheumatology 03/28/23 documented as of this encounter
--- OUTSIDE RECORDS SUMMARY | 2024-10-08 16:09 | XMS_ITS | Clinical Summary ---
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 [facility] 3 Date of : 1950 Instrument Name: [id number] Gender: Female Note Status: Finalized Procedure: Colonoscopy Indications: Screening for colorectal malignant neoplasm, Last colonoscopy 10 years ago Providers: Steve Rosenberg M.D. Referring MD: Raciel Jimenez M.D. Medicines: Propofol per Anesthesia Complications: No immediate complications. Estimated Blood Loss: Estimated blood loss was minimal. Procedure: Pre-Anesthesia Assessment: - Prior to the procedure, a History and Physicalwas performed, and patient medications and allergieswere reviewed. The patient is competent. The risks and benefits of the procedure and the sedation optionsand risks were discussed with the patient. Allquestions were answered and informed consent was obtained. Patient identification and proposed procedure were verified by the physician, the nurse and the anesthesiologist in the pre-procedure area. Mental Status Examination: alert and oriented. Airway Examination: normal oropharyngeal airway and neck mobility. Respiratory Examination: clear to auscultation. CV Examination: normal. ASA Grade Assessment: II - A patient with mild systemicdisease. After reviewing the risks and benefits, the patient was deemed in satisfactory condition to undergo the procedure. The anesthesia plan was to use monitored anesthesia care (MAC). Immediately prior to administration of medications, the patient was re-assessed for adequacy to receive sedatives. The heart rate, respiratory rate, oxygen saturations, blood pressure, adequacy of pulmonary ventilation,and response to care were monitored throughout the procedure. The physical status of the patient was re-assessed after the procedure. - The risks and benefits of the procedure and the sedation options and risks were discussed with the patient. All questions were answered and informed consent was obtained. The benefits, risks and alternatives of theprocedure and sedation were discussed and informed consentwas obtained. All questions were answered. Please referto the signed informed consent document in the medical record. The scope was passed under direct vision.The Colonoscope was introduced through the anus and advanced to the the cecum, identified byappendiceal orifice and ileocecal valve. The colonoscopy was performed without difficulty. The patient tolerated the procedure well. The quality of the bowel preparation was evaluated using the BBPS (BostonBowel Preparation Scale) with scores of: Right Colon = 3, Transverse Colon = 3 and Left Colon = 3 (entiremucosa seen well with no residual staining, smallfragments of stool or opaque liquid). The total BBPS score equals 9. The bowel preparation used was Plenvu via split dose instruction. Findings: Five sessile polyps were found in the descending colon, transverse colon, ascending colon and cecum. The polyps were 4 to 8 mm in size. These polyps were removed with a cold snare. Resection and retrieval were complete. Multiple small-mouthed diverticula were found in the sigmoid colonand descending colon. The exam was otherwise without abnormality. Impression: - Five 4 to 8 mm polyps in the descending colon, in the transverse colon, in the ascending colon and in the cecum, removed with a cold snare. Resected and retrieved. - Diverticulosis in the sigmoid colon and in the descending colon. - The examination was otherwise normal. Recommendation: - Discharge patient to home. - Await pathology results. - Repeat colonoscopy in 3 years for surveillance. - Continue present medications. Electronically signed by Steve Rosenberg M.D. Steve Rosenberg M.D. 07/16/2024 11:05:52 AM Number of Addenda: 0 Note Initiated On: 07/16/2024 10:32 AM Scope Withdrawal Time: 0 hours 13 minutes 46 seconds Scope In: 10:41:37 AM Scope Out: 11:02:31 AM Steve Rosenberg MD ENDOSCOPY PROCEDURES Final Re sult * Dexa Axial Skeleton Bone Density 1 or 2 Site (02/28/2023) Anatomical Region Laterality Modality Body N/A Radiographic Daly ging Historical Provider IMG DXA PROCEDURES Final Result * Screening Mammogram Bilateral W Allen (10/15/2022 8:45 AM CDT) Anatomical Region Laterality Modality Breast Bilateral Mammography Narrative 10/19/2022 12:21 PM CDT Examination: Screening Mammogram Bilateral W Allen: 10/15/22 Clinical: Screening mammogram, encounter for. Prior Study Comparisons: Comparison was made to the prior available relevant studies at the time of interpretation. Findings: Bilateral No significant masses, malignant type calcifications, skin thickening, nipple retraction, or significant lymphadenopathy is noted in either breast. The CAD review showed no significant findings. The breasts have scattered areas of fibroglandular density. The patient will be notified of results by letter. Impression: BI-RADS ATLAS category (overall): 1 - Negative There is no mammographic evidence of malignancy. Routine Screening Mammogram in 1 Yr is recommended for bilateral Overall Assessment: 1 - Negative us Self Screening Mammogram IMG MAMMO PROCEDURES Fi nal Result * Serum Hepatitis C ab (06/26/2015 9:50 AM CDT) HCV ab NON-REACTI VE NON-REACTI VE HISTORICAL RESULTS Hepatitis signal to cutoff ratio 0.03 <1.00 HISTORICAL RESULTS Comment: REPORT COMMENT: SPLIT 06/26/2015 FROM [id number] Serum 06/26/2015 9:50 AM CDT Narrative HISTORICAL RESULTS - 06/27/2015 2:00 AM CDT [facility] [address] [place] [address] Director: MARLENE GRACIA DO,MPH Historical Provider LAB BLOOD ORDERABLES Aurelia benitez Result HISTORICAL RESULTS from Last 3 Months or Most Recently Relevant to Health Maintenance Insurance [place] [address] FOR LIFE MEDICARE [facility]IC[facility] [employer] [facility] MEDICARE [employer] [place] [address] [employer] LIFE MEDICARE Advance Directives For more information, please contact: [phone] * Full Code (Latest Code Status on File) Date Activated Date Inactivated Comments 07/16/2024 10:05 AM 07/16/2024 3:48 PM * Full Code Date Activated Date Inactivated Comments 09/06/2023 12:22 PM 09/06/2023 7:45 PM * Full Code Date Activated Date Inactivated Comments 03/23/2019 11:03 PM 03/24/2019 6:39 PM * Full Code Date Activated Date Inactivated Comments 03/01/2019 7:42 PM 03/23/2019 2:12 PM * Full Code Date Activated Date Inactivated Comments 02/23/2019 1:38 PM 02/28/2019 3:22 PM Care Teams Welt Wheeler Relationship Specialty Start Date End Date Raciel Jimenez MD [address] [place] [address] PCP - General 06/18/16 Lux Penaloza III, MD [address] [place] [address] Rheumatology 04/04/17 John Allen MD [address] [place], [place] [id number] Consulting Physician Cardiology 05/16/19 Drake Hernandez MD [address] [place] [address] Referring Physician Gastroenterology 04/10/21 Ashok Hernandez MD [address] [place] [address] Consulting Physician Rheumatology 03/28/23
--- OUTSIDE RECORDS SUMMARY | 2024-10-08 16:09 | XMS_ITS | Clinical Summary ---
Author Organization [facility] Address [address] [facility] [place] [address] Care Team Providers Care Olive Brine Tester Name Role Phone Raciel Jimenez MD Primary Care Provider [phone] Richard HAMILTON MD, Lux Mckeon Unavailable Lefty Yeung MD Unavailable [phone] Source Comments [facility],non-owned Affiliates and Associated Physician Practices is amultiple site organization consisting of ambulatory clinics and hospital sitesin [place], [place], [place] and [place]. This disclosure is being madepursuant to the Care Everywhere program and may not contain all information available regarding this patient. Last updated 17.[facility] Allergies No known active allergies Medications * Be aware that medications may not be up to date on this document. Alwaysverify current medications with the patient. aspirin 81 MG tablet Take 1 (one) tablet by mouth once daily Active albuterol HFA (PROVENTIL;REYES YOHAN;PROAIR) 108 (90 BASE) MCG/ACT inhaler Inhale 2 Puffs by mouth every 6 hours as needed. 3 Inhaler 3 12/01/2013 Active cloNIDine (CATAPRES) 0.1 MG tabletIndication s:Essential hypertension, benign 1 Tab at bedtime. 90 Tab 3 08/01/2014 Active atorvastatin (LIPITOR) 40 MG tablet TAKE 1 TABLET AT BEDTIME 90 Tab 1 09/30/2014 Active potassium chloride ER (KLOR-CON M) 20 MEQ tablet 1 (one) tablet 2 times daily 01/20/2021 Active clopidogrel (PLAVIX) 75 MG tablet Take 1 (one) tablet by mouth once daily Active doxazosin (CARDURA) 4 MG tablet Take 1 (one) tablet by mouth 2 times daily 07/28/2021 Active FLOVENT HFA 220 MCG/ACT inhaler 2 times daily 07/28/2021 Active furosemide (LASIX) 40 MG tablet Take 1 (one) tablet by mouth 2 times daily 08/10/2021 Active hydroxychloroqui ne (PLAQUENIL) 200 MG tablet Take 1 (one) tablet by mouth once daily 05/15/2021 Active ibandronate (BONIVA) 150 MG tablet Take 1 (one) tablet by mouth every 30 days 07/28/2021 Active Zinc Sulfate (ZINC 15 PO) Take by mouth once daily Active Turmeric 500 MG TABS Take by mouth once daily Active Misc Natural Products (Elderberry Immune Complex) CHEW Take by mouth once daily Active cyanocobalamin (Vitamin B-12) 1000 MCG tablet Take 2 (two) tablets by mouth once daily Active carvedilol (Coreg) 25 MG tablet Take 1 (one) tablet by mouth 2 times daily 06/20/2023 Active dilTIAZem ER 24hr (Tiazac) 240 MG capsule Take 1 (one) capsule by mouth once daily 05/16/2023 Active irbesartan (Avapro) 300 MG tablet Take 1 (one) tablet by mouth at bedtime 01/09/2024 01/09/20 25 Active isosorbide mononitrate CR 24hr (Imdur) 30 MG tablet Take 1 (one) tablet by mouth once daily 10/07/2023 Active Active Problems Problem Noted Date Diagnosed Date Elevated liver enzymes 04/30/2021 Overview (04/16/2024): 03/29/22 Fibroscan CAP 237, LSM 4.8 kPa 04/16/24 Fibroscan CAP 227, LSM 6.2 kPa Hepatic steatosis 04/30/2021 Coronary artery disease invo lving coronary bypass graft of [facility] [place] [facility] without angina pectoris 04/30/2021 Systemic lupus erythematosus 10/31/2013 Essential hypertension, benign 01/25/2009 Hypercholesteremia 09/19/2008 Myopathy 09/19/2008 Resolved Problems Problem Noted Date Diagnosed Date Resolved Date Hypertension 09/19/2008 01/25/2009 Immunizations Immunization Administration Dates Next Due INFLUENZA VACCINE, TRIV. (AF LURIA, FLUZONE TRIVALENT; 6MO+) (IIV3) 12/04/2011,12/12/2010,01/17/2010 FLU VACCINE TRI IIV3 SPLIT P F IM (FLUVIRIN) 03/24/2013 INFLUENZA VACCINE, QUADR. (A FLURIA, FLUZONE QUADRIVALENT; 6MO+) (IIV4) 01/05/2014 TDAP (7yrs+) 10/25/2021(Deferred: Patient Refused),04/24/2014 ZOSTER VACCINE, LIVE 09/20/2014 Family History Medical History Relation Name Comments Heart Disease Father Hypertension Father Stroke Father Hypertension Mother Kidney Disease Mother Relation Name Status Comments Brother X 3 Alive Father Mother (Age 38) Sister X 2 Alive Social History Tobacco Use Types Packs/Day Years Used Date Smoking Tobacco: Never Smokeless Tobacco: Never Tobacco Cessation:Counseling Given: Not Answered Alcohol Use Standard Drinks/Week Comments No 0 (1 standard drink = 0.6 oz pur e alcohol) Comments No Sex and Gender Information Value Date Recorded Sex Assigned at Not on file Legal Sex Female 6:43 AM ORACLE DISTRIBUTION CONSULTANT Gender Identity Not on file Sexual Orientation Not on file Last Filed Vital Signs Vital Sign Reading Time Taken Comments Blood Pressure 192/90 04/16/2024 10:23 AM ORACLE DISTRIBUTION CONSULTANT manual BP Pulse 56 04/16/2024 10:11 AM ORACLE DISTRIBUTION CONSULTANT Temperature 36.6 C (97.9 F) 04/16/2024 10:11 AM ORACLE DISTRIBUTION CONSULTANT Respiratory Rate 18 04/18/2023 8:41 AM ORACLE DISTRIBUTION CONSULTANT Oxygen Saturation 99% 04/16/2024 10: 11 AM ORACLE DISTRIBUTION CONSULTANT Inhaled Oxygen Concentration - - Weight 62.8 kg (138 lb 6.4 oz) 04/16/19 25 10:11 AM ORACLE DISTRIBUTION CONSULTANT Height 144.8 cm (4' 9) 04/16/2024 10:1 1 AM ORACLE DISTRIBUTION CONSULTANT Body Mass Index 29.95 04/16/2024 10:11 AM ORACLE DISTRIBUTION CONSULTANT Plan of Treatment Upcoming Encounters Date Type Department Care Team (Late st Contact Info) Description 04/16/2025 12:30 PM ORACLE DISTRIBUTION CONSULTANT Office Visit [facility] [address] [facility] [facility] [place] [address] Jackeline Fina N, HEEL SANDER-FAMILY WORKER [address] [address] Health Maintenance Due Date Last Done Comments COLOGUARD (AGES 45-75) - COLON CA SCREENING 1950 CT COLONOGRAPHY - COLON CA SCREENING 1950 FIT - COLON CA SCREENING 1950 FLEX SIG - COLON CA SCREENING 1950 MEDICARE AWV 12 MONTHS 1950 PNEUMOCOCCAL VACCINE 50+ (1 of 1 - PCV) 2002 BONE DENSITY TESTING 08/12/2014 08/12/2012, 01/17/20 10 ZOSTER VACCINE (2 of 3) 11/15/2014 09/20/2014 COLON MONITORING 04/10/2023 04/10/2013, , 04/10/2013 COLONOSCOPY - COLON CA SCREENING 04/10/2023 04/10/2013, 04/10/2013, 04/10/2013, Additional history exists Colorectal Cancer Screening 04/10/2023 COVID-19 VACCINE ( season) 2023 12/03/2021, 08/17/2021, 01/30/2021, Additional history exists DEPRESSION SCREENING 03/21/2024 DTAP/TDAP/TD VACCINES (2 - Td or Tdap) 04/24/2024 04/24/2014 MAMMOGRAM 10/15/2024 10/15/2022, 09/19, 08/12/2012, Additional history exists SCREENING FOR DIABETES 10/25/2024 2, 11/25/2012, 12/04/2011, Additional history exists INFLUENZA VACCINE (#1) 2024 4, 12/03/2021, 12/20/2020, Additional history exists Respiratory Syncytial Virus (RSV) Vaccine Pt: or over 60 yrs (1 - 1-dose 75+ series) 08/12/2027 HEPATITIS C SCREENING Completed 11/25/2012 HEPATITIS B VACCINE Aged Out No longe r eligible based on patient's age to complete this topic HIB VACCINE Aged Out No longer eligi ble based on patient's age to complete this topic HPV VACCINE Aged Out No longer eligi ble based on patient's age to complete this topic MENINGOCOCCAL (Group B) VACCINE SHARED DECISION-MAKING Aged Out No longer eligible based on patient's age to complete this topic MENINGOCOCCAL GROUPS A/C/Y/W VACCINE Aged Out No longer eligible based on patient's age to complete this topic Goals Goal Patient Goal Type Associated Problems Recent Progress Patient-Stated? Author Blood Pressure < 140/90 Blood Pressure 192/90(04/16 10:23 AM ORACLE DISTRIBUTION CONSULTANT) No Marylou Lopez MA Medication Management General On track(2024 11:32 AM ORACLE DISTRIBUTION CONSULTANT) No Deanna Montez, MIKHAIL Note: Expected end date: ongoing Interventions: Take all medications as prescribed Let your doctor know right away about any changes in your medications Make sure to request a refill of your medication at least one week prior to your last dose Safety General On track(2024 11:32 AM ORACLE DISTRIBUTION CONSULTANT) No Janki Bowen RN Note: Expected end date: ongoing Interventions: Keep personal items within easy reach Keep walking paths clutter free and clear Maintain an unobstructed path to the bathroom Procedures Procedure Name Priority Date/Time Associated Diagnosis Comments BASIC METABOLIC PANEL (CALCIUM TOTAL) STAT 10/25/2021 12:34 AM CDT ENDOSCOPY, COLON, SCREENING Routine 04/10/2013 8:25 AM ORACLE DISTRIBUTION CONSULTANT HEPATITIS C ANTIBODY Routine 11/25/2012 10:01 AM CDT Need for hepatitis C screening test DEXA BONE DENSITY AXIAL SKELETON Routine 08/12/2012 MAMMO BILAT SCREENING Routine 08/12/2012 from Last 3 Months or Most Recently Relevant to Health Maintenance Results * (ABNORMAL) BASIC METABOLIC PANEL (CALCIUM TOTAL) (10/25/2021 12:34 AM CDT) BUN 12 7 - 26 mg/dL 10/25/2021 1:05 AM CDT [facility] Creatinine 0.99(H) 0.56 - 0.96 mg/dL 10/25/2021 1:05 AM [facility] Sodium 145 136 - 145 mmol/L 10/25/2021 1:05 AM [facility] Potassium 3.5 3.5 - 4.5 mmol/L 10/25/2021 1:05 AM [facility] Chloride 109(H) 98 - 107 mmol/L 10/25/2021 1:05 AM [facility] CO2 25 22 - 29 mmol/L 10/25/2021 1:05 AM [facility] Glucose 100 70 - 115 mg/dL 10/25/2021 1:05 AM [facility] Calcium 9.3 8.4 - 10.2 mg/dL 10/25/2021 1:05 AM [facility] Anion Gap 15 8 - 18 10/25/2021 1:05 AM [facility] BUN/Creatinine Ratio 12 7 - 23 10/25/2021 1:05 AM [facility] Osmolality Calculated 300 270 - 300 mOsm/kg 10/25/2021 1:05 AM [facility] eGFR by CKD-EPI 62(L) >=90 mL/min/1.7 3 m2 10/25/2021 1:05 AM [facility] Blood BLOOD SPECIMEN / Unknown Venipuncture / Unknown 10/25/2021 12:34 AM CDT 10/25/2021 12:39 AM [facility] us Mainor Kilpatrick MD LAB - CHEMISTRY ORDERABLES Final Result [facility] [address] [place] [address] [phone] * ENDOSCOPY, COLON, SCREENING (04/10/2013 8:25 AM ORACLE DISTRIBUTION CONSULTANT) Report Endoscopy POC _ Patient Name: Haydee Brady Procedure Date: 04/10/2013 8:25 AM Date of : 1950 Admit Type: Outpatient Age: 62 Gender: Female Attending MD: Teddy Harrell MD _ Procedure: Colonoscopy Indications: Screening for colorectal malignant neoplasm Providers: Teddy Harrell MD (Doctor), Elmira Sanders RN, Anne Rodriguez, Nurses Aide Referring MD: Raciel Jimenez MD (Referring MD) Medicines: Propofol per Anesthesia Complications: No immediate complications. _ Procedure: After I obtained informed consent, the scope was passed under direct vision. Throughout the procedure, the patient's blood pressure, pulse, and oxygen saturations were monitored continuously. The Colonoscope was introduced through the anus and advanced to the cecum, identified by appendiceal orifice & ileocecal valve. The quality of the bowel preparation was good. Impression: - A single (solitary) ulcer at the ileocecal valve. Biopsied. - Diverticulosis in the sigmoid colon. - Internal hemorrhoids. - The examination was otherwise normal. Findings: A single (solitary) ten mm ulcer (unclear significance) was found at the ileocecal valve. No bleeding was present. Biopsies were taken with a cold forceps for histology. Multiple diverticula were found in the sigmoid colon. Internal hemorrhoids were found during retroflexion and were Grade II (internal hemorrhoids that prolapse but reduce spontaneously). The exam was otherwise without abnormality. _ Recommendation: - Await pathology results. - High fiber diet. - Repeat colonoscopy in 10 years for screening purposes. Procedure Code(s): --- Professional --- 05199, Colonoscopy, flexible, proximal to splenic flexure; with biopsy, single or multiple --- Technical --- 51231, Colonoscopy, flexible, proximal to splenic flexure; with biopsy, single or multiple Diagnosis Code(s): --- Professional --- V76.51, Special screening for malignant neoplasms of colon 569.82, Ulceration of intestine 455.2, Internal hemorrhoids with other complication 562.10, Diverticulosis of colon (without mention of hemorrhage) --- Technical --- V76.51, Special screening for malignant neoplasms of colon 569.82, Ulceration of intestine 455.2, Internal hemorrhoids with other complication 562.10, Diverticulosis of colon (without mention of hemorrhage) CPT (R) 2012 [employer]. All Rights Reserved. The codes documented in this report are preliminary and upon surgical coder review may be revised to meet current compliance requirements. ___ Teddy Harrell MD 04/10/2013 9:15 AM This report has been signed electronically. Number of Addenda: 0 Note Initiated On: 04/10/2013 8:25 AM [facility] 04/10/2013 8:25 AM ORACLE DISTRIBUTION CONSULTANT Narrative [facility] - 04/10/2013 9:18 AM ORACLE DISTRIBUTION CONSULTANT Procedure Note Teddy Harrell MD - 04/10/2013 9:18 AM CST us Teddy Harrell MD GI PROCEDURE ORDERABLES Edit ed [facility] * HEPATITIS C ANTIBODY (11/25/2012 10:01 AM CDT) Hepatitis C Antibody 0.2 0.0 - 0.9 s/co ratio [facility] ACCOUNT BILL Comment: Negative: < 0.8 Indeterminate 0.8 - 0.9 Positive: > 0.9 . In order to reduce the incidence of a false positive result, the CDC recommends that all s/co ratios between 1.0 and 10.9 be confirmed by a more specific supplemental or PCR testing. [facility] w/Reflex to Verification test #[id number]. Blood specimen (specimen) BLOOD SPECIMEN / Unknown 11/25/2012 10:01 AM CDT 11/25/2012 2:09 PM CDT Narrative Resulting Agency Comment [facility] [address] [facility] [phone] us Raciel Jimenez MD LAB - CHEMISTRY ORDERABLE S Final Result [facility] ACCOUNT BILL [address] [place] [address] * MAMMO SCREENING DIGITAL IMAGE BILAT (08/12/2012) Anatomical Region Laterality Modality Breast Bilateral Other us Provider Unknown MAMMO ORDERABLES Final Result * DEXA BONE DENSITY AXIAL SKELETON (08/12/2012) Anatomical Region Laterality Modality Other us Provider Unknown DEXA ORDERABLES Final Result from Last 3 Months or Most Recently Relevant to Health Maintenance Insurance MEDICARE * Guarantor: HAYDEE BRADY Account Type Relation to Patient Date of Phone Billing Address Personal/Family Spouse [address] * Guarantor: HAYDEE BRADY Account Type Relation to Patient Date of Phone Billing Address Personal/Family Spouse [address] [place] [id number] MEDICARE [facility] [address] Care Teams Olive Brine Tester Relationship Specialty Start Date End Date Raciel Jimenez MD [address] [facility] [address], [place] [address] PCP - General 09/19/08 Lux Ramos III, MD [address] [facility] [address], [place] [address] Rheumatology 12/01/13 Lefty Yeung MD [address] [facility] [address] [place] [address] Pulmonary Disease 12/01/13
--- OUTSIDE RECORDS SUMMARY | 2024-10-08 16:09 | XMS_ITS | Encounter Summary ---
Author Organization [facility] Healthcare Address [address] [place] [address] Care Team Providers Care Spool Sander Name Role Phone Raciel Jimenez MD Primary Care Provider + Richard HAMILTON MD, Lux Vazquez Unavailable John Allen MD Unavailable [phone] Drake Hernandez MD Unavailable [phone] Ashok Hernandez MD Unavailable [phone] Reason for Visit * Reason Onset Date Comments Dizziness 10/08/2024 Encounter Details Date Type Department Care Team (Late st Contact Info) Description 10/08/2024 Nurse Triage [facility] Primary Care at [facility] [address] [facility] [address], [place] [address] Raciel Jimenez MD [address] [facility] [address] [address] Social History Tobacco Use Types Packs/Day Years [...] on file Legal Sex Female 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 Reports that she feels dizzy all the time, but becomes more severe when she stands up. Reports with standing gets room spinning sensation. Reports staggering when trying to walk. Headache pain currently 3/10. Denies chest pain, difficulty breathing, weakness/numbness on one side of the body, fever. Provider contacted via secure chat for ED disposition consult. Recommendation from provider:Proceedto ED.Patient agreeable. Advised to call back with questions, concerns, follow up. Caller stated understanding. Disposition Go to ED/UCC Now (or to Office With PCP Approval) Reason for Disposition SEVERE dizziness (e.g., unable to stand, requires support to walk, feels like passing out now) Protocols Used [id number] * Telephone Encounter - Lacie Layne RN - 10/08/2024 2:09 PM CDT Regarding: Dizziness & Lightheadedness ----- Message from Dayami Cordova sent at 10/08/2024 2:07 PM CDT ----- Symptom Based Call Chief Complaint(s): Dizziness & Lightheadedness Duration: 2-3 days What type of symptom(s) is the patient experiencing? Red Flag. Is the patient concerned they are experiencing a medical emergency requiring an ambulance? No Additional Comments: Patient calling symptomatic with lightheadedness, dizziness, low BP 110/86 concerns, fatigue and a ringing sensation in the left ear and hearing loss in the right ear. CS will route over as HP due to red flag symptoms and pt is aware of the turnaround timeframe. Does message need to be routed? Yes-Action Needed documented in this encounter Plan of Treatment Not on file documented as of this encounter Visit Diagnoses Not on filedocumented in this encounter Care Teams Spool Sander Relationship Specialty Start Date End Date Raciel Jimenez MD [address] [place] [address] PCP - General 06/18/16 Lux Ramos III, MD [address] [place] [address] Rheumatology 04/04/17 John Allen MD [address] [place] [address] Consulting Physician Cardiology 05/16/19 Drake Hernandez MD [address] [place] [address] Referring Physician Gastroenterology 04/10/21 Ashok Hernandez MD [address] [place] [address] Consulting Physician Rheumatology 03/28/23 documented as of this encounter
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
[2024-10-08 16:25] VITALS: BP 175/65; PULSE 50; RESP 16; TEMP 36.1; O2SAT 100
--- NOTE | 2024-10-08 17:09 | ECG_ITS ---
Test Date: 2024-10-08 18:16:11 Measurements Intervals [place] Rate: 53 P: 22 ME: 122 QRS: -42 QRSD: 126 T: 41 QT: 431 QTc: 406 Interpretive Statements SINUS BRADYCARDIA POSSIBLE LEFT ATRIAL ENLARGEMENT [-0.1mV P-WAVE IN V1/V2] LEFT AXIS DEVIATION [QRS AXIS < -30] RIGHT BUNDLE BRANCH BLOCK [120+ ms QRS DURATION, UPRIGHT V1, 40+ ms S IN I/aVL/V4/V5/V6] POSSIBLE ANTERIOR MYOCARDIAL INFARCTION , PROBABLY OLD [30 ms Q WAVE IN V3/V4, OR R < 0.2 mV IN V4] No previous ECG available for comparison Electronically Signed On 10-09-2024 16:33:58 CDT by Shanique Wu M.D.
--- NOTE | 2024-10-08 17:43 | ED_ITS ---
HPI - Dizziness General Chief Complaint: Nausea/Vomiting/Diarrhea Stated Complaint: headache, nausea, HTN Time Seen by Provider: 10/08/24 17:09 Source: patient Mode of arrival: wheelchair Limitations: no limitations History of Present Illness HPI Narrative: This is a 74 year old female that presents to the ER for dizziness. Ongoing over the last couple of days. Worse with standing. Reports she feels unsteady on her feet. Reports associated nausea. Fullness in her left ear. Reports she has also had some shortness of breath with exertion the last couple of days. Denies chest pain, vomiting, focal numbness, weakness. Related Data Home Medications ?Medication ?Instructions ?Recorded ?Confirmed ?Last Taken ?Type aspirin 81 mg tablet,delayed 81 mg PO DAILY 02/21/19 06/05/24 03/19/23 History release (Adult Low Dose Aspirin) atorvastatin 40 mg tablet 40 mg PO HS 02/21/19 06/05/24 03/19/23 History clonidine HCl 0.1 mg tablet 0.1 mg PO HS 02/21/19 06/05/24 03/19/23 History doxazosin 4 mg tablet 4 mg PO HS 02/21/19 06/05/24 03/19/23 History hydroxychloroquine 200 mg tablet 200 mg PO DAILY 02/21/19 06/05/24 03/19/23 History triamcinolone acetonide 0.1 % 1 applic TID PRN Cold Sores 02/21/19 06/05/24 Unknown History dental paste albuterol sulfate 90 mcg/actuation See Rx Instructions .Route 05/04/19 06/05/24 Unknown History aerosol inhaler (ProAir HFA) .COMPLEX PRN Wheezing furosemide 40 mg tablet (Lasix) 40 mg PO BID 10/18/19 06/05/24 03/19/23 History potassium chloride 20 mEq 20 meq PO BID 10/18/19 06/05/24 03/19/23 History tablet,extended release carvedilol 25 mg tablet 25 mg PO Q12H 02/19/21 06/05/24 04/18/23 History clopidogrel 75 mg tablet 75 mg PO DAILY 02/19/21 06/05/24 03/20/23 History diltiazem HCl 240 mg capsule,24 240 mg PO DAILY 02/19/21 06/05/24 04/18/23 History hr,extended release (Tiazac) fluticasone propionate 220 1 puff inhalation Q12H 02/19/21 06/05/24 Unknown History mcg/actuation HFA aerosol inhaler (Flovent HFA) Allergies Allergy/AdvReac Type Severity Reaction Status Date / Time No Known Allergies Allergy Verified 10/08/24 18:03 Review of Systems 2 Review of Systems: All systems reviewed & are unremarkable except as noted in HPI and below PMFSH Past Medical History Medical History Chronic kidney disease, stage 3 Coronary artery disease Status post 4 vessel bypass in February 2019. Hypertension Systemic lupus erythematosus Osteoporosis Asthma Hyperlipidemia Surgical History Surgical History History of laparoscopic cholecystectomy 04/18/23 PDC History of tubal ligation History of partial thyroidectomy History of dilation and curettage History of 2 sections History of four vessel coronary artery bypass graft (02/2019) Family History Family History Mother Acute myocardial infarction Hypertension Father Cerebrovascular accident Hypertension Congestive heart failure Mental illness in member of household Chronic kidney disease Sibling Hypertension Sibling Hypertension Social History Social History Social History: Surrogate medical decision maker: David Brady, spouse. Code status: Full code. Smoking status: Never smoker Second hand tobacco smoke exposure: No Alcohol intake: never Substance use: never Substance use type: does not use Do You Feel Safe in your Home?: Yes Lack of Transportation: YES Lack of Food: Never True Current Housing: I Have Housing Concerned About Future Housing: No Difficulty Paying Gas/Electric Bills: No Difficulty Paying for Meds: No Currently Unemployed: No Education: Master's Degree or Higher Difficulty w/ Childcare or Family Care: No Living arrangements: with family Additional living arrangements comments: Lives with spouse in [place]. Additional occupation/education comments: [employer]. Spiritual care concerns: No Agree to blood products: Yes Exam 2 Narrative: GENERAL: Well-appearing, well-nourished, and in no acute distress. HEAD: Normocephalic, atraumatic. EYES: PERRLA and EOMI. ENT: Nares clear, no rhinorrhea or epistaxis. Mucous membranes moist. Oropharynx without tonsillar hypertrophy exudate or other lesions. Bilateral TMs pearly boucher non-bulging. Effusion noted behind the left TM NECK: Supple. No adenopathy or masses. CHEST: Clear to auscultation. No respiratory distress. No wheezes rales or rhonchi HEART: Regular rate and rhythm. No murmur heard. Normal peripheral pulses. EXTREMITIES: Normal range of motion. No edema. Strength equal in bilateral upper and lower extremities (5/5) SKIN: Warm, dry, no rash. NEURO: No focal deficits. Alert and oriented x3. Cranial nerves 2-12 grossly intact. Normal [id number] PSYCH: Normal mood and affect Course Course Emergency Course: patient updated on her workup. Reports feeling better Vital Signs Vital signs: Vital Signs Temperature 97.0 F L 10/08/24 16:25 Pulse Rate 50 L 10/08/24 16:25 Respiratory Rate 16 10/08/24 16:25 Blood Pressure 175/65 H 10/08/24 16:25 Pulse Oximetry 100 10/08/24 16:25 Temperature 97.9 F 10/08/24 18:01 Pulse Rate 60 10/08/24 22:37 Respiratory Rate 17 10/08/24 22:37 Blood Pressure 183/76 H 10/08/24 22:37 Pulse Oximetry 96 10/08/24 22:37 MDM - Dizziness MDM Narrative Medical decision making narrative: Patient presents the emergency department for dizziness. She is neurologically intact. Blood pressure is elevated in the 170s to 180s systolic, patient has known history of chronic hypertension. Heart rate in the 50s, which appears chronic. Cbc without leukocytosis. Hemoglobin is normal. Metabolic panel with mild hypokalemia and hypomagnesemia. These were replaced. Urine without evidence of infection. CT brain without acute findings. Chest x-ray without acute cardiopulmonary abnormality. EKG without concerning changes, baseline troponin is negative. Patient was updated on her workup. Resting comfortably. Reports improvement with IV fluids, meclizine, Zofran. She is to follow up with her PCP. She was given warnings to return to the ER Differential Diagnosis Differential diagnosis: Likely benign paroxysmal positional vertigo, orthostatic hypotension, vertebral basilar insufficiency and transient cerebral ischemia Lab Data Attestation: I reviewed the patient's lab results. 10/08/24 17:40 10/08/24 17:40 Labs: Lab Results 10/08/24 10/08/24 Range/Units 17:40 19:47 WBC 6.9 (4.5-10.0) K/mm3 RBC 3.82 L (4.2-5.4) M/mm3 Hgb 12.1 (12.0-15.0) g/dL Hct 35.0 L (37.0-47.0) % MCV 91.6 (80-100) fl MCH 31.7 (26-34) pg MCHC 34.6 (32-36) g/dl RDW 13.2 (11.5-14.5) % Plt Count 226 (150-375) k/mm3 MPV 9.4 (7.4-10.4) fl Immature Gran % (Auto) 0.3 (0-0.5) % Neut % (Auto) 69.5 (45.5-73.1) % Lymph % (Auto) 24.1 (18.3-44.2) % [place] % (Auto) 5.2 (2.6-8.5) % Eos % (Auto) 0.6 (0-4.4) % Baso % (Auto) 0.3 (0.2-1.2) % Lymph # (Auto) 1.66 (0.9-3.2) K/mm3 [place] # (Auto) 0.4 (0.1-0.6) K/mm3 Eos # (Auto) 0.0 (0-0.3) K/mm3 Baso # (Auto) 0.0 (0.0-0.1) K/mm3 Abs Immat Gran (auto) 0.02 (0.00-0.031) K/mm3 Absolute Neuts (auto) 4.8 (1.3-6.7) K/mm3 Absolute Nucleated RBC 0.000 (0.0-0.012) K/mm3 Nucleated RBC % 0.0 (0.0-0.2) % PT 14.9 H (11.1-14.7) Seconds INR 1.2 APTT 24.7 (22.3-36.8) Seconds Sodium 139 (137-145) mmol/L Potassium 3.3 L (3.4-5.0) mmol/L Chloride 102 (98-107) mmol/L Carbon Dioxide 31 H (22-30) mmol/L Anion Gap 6 (4-12) mmol/L BUN 14 D (7-17) mg/dL Creatinine 1.06 H (0.7-1.0) mg/dL Estim Creat Clear Calc Not Reportable Estimated GFR 51 L (59 - ) Glucose 117 H (65-110) mg/dL Calcium 9.3 (8.4-10.2) mg/dL Magnesium 1.5 L (1.6-2.3) mg/dL Total Bilirubin 0.4 (0.2-1.3) mg/dL AST 45 H (14-36) U/L ALT 41 H (6-35) U/L Alkaline Phosphatase 51 (38-126) U/L Troponin I < 0.012 (0.000-0.034) ng/mL Total Protein 7.4 (6.3-8.2) g/dL Albumin 4.2 (3.5-5.1) g/dL Urine Color Yellow (Yellow) Urine Appearance Clear (Clear) Urine pH 6.0 (5.0-9.0) Ur Specific [place] 1.009 (1.001-1.035) Urine Protein Negative (Negative) mg/dL Urine Glucose (UA) Negative (Negative) mg/dL Urine Ketones Negative (Negative) mg/dL Ur Blood (Man) Negative (Negative) Urine Nitrate Negative (Negative) Urine Bilirubin Negative (Negative) Urine Urobilinogen 0.2 (<2.0) mg/dL Add Ur Microanalysis Reviewed Leukocyte Esterase Rfl 1+ H (Negative) MARYBETH/UL Urine RBC 0-2 (0-2) /hpf Urine WBC 0-5 (0-3) /hpf Ur Squamous Epith Cells None seen (Few) /hpf Urine Bacteria Rare /hpf Urine Casts 0-2 Urine Mucus Present /lpf Imaging Data Radiologist's impression: ITS Impressions Chest X-Ray 10/08/24 17:38 IMPRESSION: No acute cardiopulmonary process. Head CT 10/08/24 19:25 IMPRESSION: No acute intracranial process. ECG Data EKG #1: ECG completion date: 10/08/24 EKG Interpretation: bradycardia, sinus rhythm, no ST changes and normal QT Critical Care Time Critical Care Time Critical Care Time: No Discharge Plan Discharge Clinical Impression: Dizziness, Hypomagnesemia, Hypokalemia Hypertension Qualifiers: Hypertension type: unspecified Qualified Code(s): I10 - Essential (primary) hypertension Patient Disposition: Home Condition: Improved Instructions: Hypokalemia (ED), Hypertension (ED), Hypomagnesemia (ED), Dizziness (ED) Additional Instructions: Return to the emergency department if you experience fever, chest pain, shortness of breath, abdominal pain with nausea and vomiting, weakness, numbness, or any other symptoms that are concerning to you. Rest. Stand slowly from seated position. Remain well hydrated. Your blood work, imaging and EKG today were largely re-assuring. You had a couple of electrolytes that were a little low. You had some fluid behind your left ear which I think is contributing to your symptoms, but it does not appear infected. Continue to monitor your blood pressure at home and take your blood pressure medications as prescribed. Meclizine as needed for dizziness Follow up with your primary care doctor for further evaluation/management Patient Language: Italian Prescriptions: New meclizine 25 mg tablet 25 mg PO BID PRN (Reason: dizziness) Qty: 7 0RF ondansetron 4 mg tablet,disintegrating 4 mg PO Q8H PRN (Reason: nausea and vomiting) Qty: 10 0RF No Action Imvexxy Maintenance Pack 4 mcg insert 4 mcg vaginal 2XW Qty: 8 2RF ibandronate [Boniva] 150 mg tablet 150 mg PO MONTHLY Qty: 3 3RF Rx Instructions: PT TAKES ON FIRST OF EVERY MONTH carvedilol 25 mg tablet 25 mg PO Q12H Rx Instructions: must administer with a meal/food clopidogrel 75 mg tablet 75 mg PO DAILY Flovent HFA 220 mcg/actuation HFA aerosol inhaler 1 puff inhalation Q12H diltiazem HCl [Tiazac] 240 mg capsule,extended release 24 hr 240 mg PO DAILY albuterol sulfate [ProAir HFA] 90 mcg/actuation HFA aerosol inhaler See Rx Instructions .ROUTE .COMPLEX PRN (Reason: Wheezing) Rx Instructions: 1 puff as needed for wheezing furosemide [Lasix] 40 mg Tablet 40 mg PO BID potassium chloride 20 mEq Tablet Extended Release 20 meq PO BID aspirin [Adult Low Dose Aspirin] 81 mg Tablet,Delayed Release (Dr/Ec) 81 mg PO DAILY atorvastatin 40 mg Tablet 40 mg PO HS clonidine HCl 0.1 mg Tablet 0.1 mg PO HS triamcinolone acetonide 0.1 % Paste 1 applic TID PRN (Reason: Cold Sores) doxazosin 4 mg Tablet 4 mg PO HS hydroxychloroquine 200 mg Tablet 200 mg PO DAILY Follow-up/Referrals: PHYSICIAN NOT ON STAFF,NONSTAFF [Primary Care Provider] -
[2024-10-08 17:45] LABS: Hematocrit 35.0 % (37.0-47.0); Hemoglobin 12.1 g/dL (12.0-15.0); Immature Granulocyte Percent A 0.3 % (0-0.5); Lymphocytes Absolute Auto 1.66 K/mm3 (0.9-3.2); Mean Corpuscular HGB Conc 34.6 g/dl (32-36); Mean Corpuscular Hemoglobin 31.7 pg (26-34); Mean Corpuscular Volume 91.6 fl (80-100); Nucleated Red Blood Cells Absolute Auto 0.000 K/mm3 (0.0-0.012); Nucleated Red Blood Cells Perc 0.0 % (0.0-0.2); Platelet Count Result 226 k/mm3 (150-375); Red Blood Count 3.82 M/mm3 (4.2-5.4); White Blood Count 6.9 K/mm3 (4.5-10.0)
[2024-10-08 18:01] VITALS: BP 188/84; PULSE 52; RESP 20; TEMP 36.6; O2SAT 100
[2024-10-08 18:07] LABS: Alanine Aminotransferase 41 U/L (6-35); Albumin Level 4.2 g/dL (3.5-5.1); Alkaline Phosphatase 51 U/L (38-126); Anion Gap 6 mmol/L (4-12); Aspartate Amino Transferase 45 U/L (14-36); Bilirubin,Total 0.4 mg/dL (0.2-1.3); Blood Urea Nitrogen 14 mg/dL (7-17); Calcium 9.3 mg/dL (8.4-10.2); Carbon Dioxide 31 mmol/L (22-30); Chloride 102 mmol/L (98-107); Estimated Glomerular Filt Rate 51; Glucose 117 mg/dL (65-110); Potassium 3.3 mmol/L (3.4-5.0); Sodium 139 mmol/L (137-145); Total Protein 7.4 g/dL (6.3-8.2)
[2024-10-08] MEDS: SODIUM CHLORIDE 0.9% IV 500 ML 999 ML IV CONT (18:07)
[2024-10-08] MEDS: MECLIZINE HCL 25 MG TABLET PO (18:08)
[2024-10-08] MEDS: ONDANSETRON INJ 4 MG/2 ML VIAL IV PUSH (18:08)
--- OUTSIDE RECORDS SUMMARY | 2024-10-08 18:16 | XMS_ITS | Clinical Summary ---
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
[2024-10-08 18:17] LABS: INR 1.2; Prothrombin Time 14.9 Seconds (11.1-14.7)
--- OUTSIDE RECORDS SUMMARY | 2024-10-08 18:17 | XMS_ITS | Encounter Summary ---
Author Organization [facility] Address [address] [place] [address] Phone Care Team Providers Care Sand Molder Name Role Phone Raciel Jimenez MD Primary Care Provider + Richard HAMILTON MD, Lux Vazquez Unavailable John Allen MD Unavailable [phone] Drake Hernandez MD Unavailable [phone] Ashok Hernandez MD Unavailable [phone] Encounter Details Date Type Department Care Team (Late st Contact Info) Description 08/10/2024 Results Follow-Up [facility] [address] [place] [address] Smitha Kruger PA [address] [place] [address] Urinalysis reflex to microscopic, Erythrocyte [...] on file Legal 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 Gender Identity Female 07/22/2019 9:51 AM [...] on filedocumented in this encounter Care Teams Sand Molder Relationship Specialty Start Date End Date Raciel Jimenez MD [address] [place] [address] PCP - General 06/18/16 Lux Ramos III, MD [address] [place] [address] Rheumatology 04/04/17 John Allen MD [address] [place] [address] Consulting Physician Cardiology 05/16/19 Drake Hernandez MD [facility] [place] [address] Referring Physician Gastroenterology 04/10/21 Ashok Hernandez MD [facility] [place] [address] Consulting Physician Rheumatology 03/28/23 documented as of this encounter
--- OUTSIDE RECORDS SUMMARY | 2024-10-08 18:17 | XMS_ITS | Clinical Summary ---
Author Organization [facility] Address [address] [place] [address] Care Team Providers Care Grails Web Application Developer Name Role Phone Raciel Jimenez MD Primary Care Provider [phone] Richard HAMILTON MD, Lux Mckeon Unavailable [phone] Lefty Yeung MD Unavailable [phone] Source Comments [facility],non-owned Affiliates and Associated Physician Practices is amultiple site organization consisting of ambulatory clinics and hospital sitesin [place], [place], [place] and [place]. This disclosure is being madepursuant to the Care Everywhere program and may not contain all information available regarding this patient. Last updated 17.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 Systemic lupus [...] on file Legal Sex Female 6:43 AM TRAFFIC OPERATIONS MANAGER Gender Identity Not on file Sexual Orientation Not on file Last Filed Vital Signs Vital Sign Reading Time Taken Comments Blood Pressure 192/90 04/16/2024 10:23 AM TRAFFIC OPERATIONS MANAGER manual BP Pulse 56 04/16/2024 10:11 AM TRAFFIC OPERATIONS MANAGER Temperature 36.6 C (97.9 F) 04/16/2024 10:11 AM TRAFFIC OPERATIONS MANAGER Respiratory Rate 18 04/18/2023 8:41 AM TRAFFIC OPERATIONS MANAGER Oxygen Saturation 99% 04/16/2024 10: 11 AM TRAFFIC OPERATIONS MANAGER Inhaled Oxygen Concentration - - Weight 62.8 kg (138 lb 6.4 oz) 04/16/19 25 10:11 AM TRAFFIC OPERATIONS MANAGER Height 144.8 cm (4' 9) 04/16/2024 10:1 1 AM TRAFFIC OPERATIONS MANAGER Body Mass Index 29.95 04/16/2024 10:11 AM TRAFFIC OPERATIONS MANAGER Plan of Treatment Upcoming Encounters Date Type Department Care Team (Late st Contact Info) Description 04/16/2025 12:30 PM TRAFFIC OPERATIONS MANAGER Office Visit [facility] [address] [place] [address] Jackeline Fina N, SENIOR RESEARCH ASSOCIATE-JUICE MIXER [address] [place] [address] Health Maintenance Due Date Last Done Comments [...] < 140/90 Blood Pressure 192/90(04/16 10:23 AM TRAFFIC OPERATIONS MANAGER) No Marylou Lopez MA Medication Management General On track(2024 11:32 AM TRAFFIC OPERATIONS MANAGER) No Deanna Montez, MIKHAIL Note: Expected end date: ongoing Interventions: Take all medications as prescribed Let your doctor know right away about any changes in your medications Make sure to request a refill of your medication at least one week prior to your last dose Safety General On track(2024 11:32 AM TRAFFIC OPERATIONS MANAGER) No Janki Bowen RN Note: Expected end date: ongoing Interventions: Keep personal items within easy reach Keep walking paths clutter free and clear Maintain an unobstructed path to the bathroom Procedures Procedure Name Priority Date/Time Associated Diagnosis Comments BASIC METABOLIC PANEL (CALCIUM TOTAL) STAT 10/25/2021 12:34 AM CDT ENDOSCOPY, COLON, SCREENING Routine 04/10/2013 8:25 AM TRAFFIC OPERATIONS MANAGER HEPATITIS C ANTIBODY Routine 11/25/2012 10:01 AM CDT Need for hepatitis C screening test DEXA BONE DENSITY AXIAL SKELETON Routine 08/12/2012 MAMMO BILAT SCREENING Routine 08/12/2012 from Last 3 Months or Most Recently Relevant to Health Maintenance Results * (ABNORMAL) BASIC METABOLIC PANEL (CALCIUM TOTAL) (10/25/2021 12:34 AM CDT) BUN 12 7 - 26 mg/dL 10/25/2021 1:05 AM CDT [facility] Creatinine 0.99(H) 0.56 - 0.96 mg/dL 10/25/2021 1:05 AM [facility] Sodium 145 136 - 145 mmol/L 10/25/2021 1:05 AM [facility] Potassium 3.5 3.5 - 4.5 mmol/L 10/25/2021 1:05 AM [facility] Chloride 109(H) 98 - 107 mmol/L 10/25/2021 1:05 AM [facility] CO2 25 22 - 29 mmol/L 10/25/2021 1:05 AM [facility] Glucose 100 70 - 115 mg/dL 10/25/2021 1:05 AM [facility] Calcium 9.3 8.4 - 10.2 mg/dL 10/25/2021 1:05 AM [facility] Anion Gap 15 8 - 18 10/25/2021 1:05 AM [facility] BUN/Creatinine Ratio 12 7 - 23 10/25/2021 1:05 AM [facility] Osmolality Calculated 300 270 - 300 mOsm/kg 10/25/2021 1:05 AM [facility] eGFR by CKD-EPI 62(L) >=90 mL/min/1.7 3 m2 10/25/2021 1:05 AM [facility] Blood BLOOD SPECIMEN / Unknown Venipuncture / Unknown 10/25/2021 12:34 AM CDT 10/25/2021 12:39 AM [facility] [place] Mainor Kilpatrick MD LAB - CHEMISTRY ORDERABLES Final Result [facility] [address] [place] [address] [phone] * ENDOSCOPY, COLON, SCREENING (04/10/2013 8:25 AM TRAFFIC OPERATIONS MANAGER) Report Endoscopy POC _ Patient Name: Haydee Brady Procedure Date: 04/10/2013 8:25 AM Date of : 1950 Admit Type: Outpatient Age: 62 Gender: Female Attending MD: Teddy Harrell MD _ Procedure: Colonoscopy Indications: Screening for colorectal malignant neoplasm Providers: Teddy Harrell MD (Doctor), Elmira Sanders RN, Anne Rodriguez, Independent Driver Referring MD: Raciel Jimenez MD (Referring MD) [...] screening purposes. Procedure Code(s): --- Professional --- 68584, Colonoscopy, flexible, proximal to splenic flexure; with biopsy, single or multiple --- Technical --- 94050, Colonoscopy, flexible, proximal to splenic flexure; with [...] (without mention of hemorrhage) CPT (R) 2012 [employer]. All Rights Reserved. The codes documented in this report are preliminary and upon sweeping compound blender review may be revised to meet current compliance requirements. ___ Teddy Harrell MD 04/10/2013 9:15 AM This report has been signed electronically. Number of Addenda: 0 Note Initiated On: 04/10/2013 8:25 AM [facility] 04/10/2013 8:25 AM TRAFFIC OPERATIONS MANAGER Narrative [facility] - 04/10/2013 9:18 AM TRAFFIC OPERATIONS MANAGER Procedure Note Teddy Harrell MD - 04/10/2013 9:18 AM CST us Teddy Harrell MD GI PROCEDURE ORDERABLES Edit ed [facility] * HEPATITIS C ANTIBODY (11/25/2012 10:01 [...] a more specific supplemental or PCR testing. [facility] w/Reflex to Verification test #[id number]. Blood specimen (specimen) BLOOD SPECIMEN / Unknown 11/25/2012 10:01 AM CDT 11/25/2012 2:09 PM CDT Narrative Resulting Agency Comment [facility] [address] [facility] [phone] us Raciel Jimenez MD LAB - CHEMISTRY ORDERABLE S Final Result [facility] ACCOUNT BILL [address] [place] [address] * MAMMO SCREENING DIGITAL IMAGE BILAT (08/12/2012) [...] Billing Address Personal/Family Spouse [address] * Guarantor: HAYDEE BRADY Account Type Relation to Patient Date of Phone Billing Address Personal/Family Spouse [address] [place] [phone] [facility] [address] Care Teams Grails Web Application Developer Relationship Specialty Start Date End Date Raciel Jimenez MD [address] [facility] [[email or web address] [address], [place] [address] PCP - General 09/19/08 Lux Ramos III, MD [address] [facility] [address], [place] [address] Rheumatology 12/01/13 Lefty Yeung MD [address] [facility] [address] [place] [address] Pulmonary Disease 12/01/13
--- OUTSIDE RECORDS SUMMARY | 2024-10-08 18:17 | XMS_ITS | Encounter Summary ---
Author Organization [facility] Address [address] [place] [address] Care Team Providers Care Event Staff Member Name Role Phone Raciel Jimenez MD Primary Care Provider + Richard HAMILTON MD, Lux Vazquez Unavailable John Allen MD Unavailable [phone] Drake Hernandez MD Unavailable [phone] Ashok Hernandez MD Unavailable [phone] Reason for Visit * Reason Onset Date Comments Dizziness 10/08/2024 Encounter Details Date Type Department Care Team (Late st Contact Info) Description 10/08/2024 Nurse Triage [facility] Primary Care at [facility] [address] [facility] [address] [address] Raciel Jimenez MD [address] [facility] [address] [address] Social History Tobacco Use Types [...] on file Legal Sex Female 9:10 PM JAVA TECHNICAL ARCHITECT Gender Identity Female 07/22/2019 9:51 AM [...] feels like passing out now) Protocols Used Dfaihdaox-Hmnye-GM * Telephone Encounter - Lacie Layne RN [...] on filedocumented in this encounter Care Teams Event Staff Member Relationship Specialty Start Date End Date Raciel Jimenez MD [address] [place] [address] PCP - General 06/18/16 Lux Ramos III, MD [address] [place] [address] Rheumatology 04/04/17 John Allen MD [address] [place] [address] Consulting Physician Cardiology 05/16/19 Drake Hernandez MD [address] [place] [address] Referring Physician Gastroenterology 04/10/21 Ashok Hernandez MD [address] [place] [address] Consulting Physician Rheumatology 03/28/23 documented as of this encounter
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
[2024-10-08 18:18] LABS: Partial Thromboplastin Time 24.7 Seconds (22.3-36.8); Troponin I < 0.012 ng/mL (0.000-0.034)
[2024-10-08 18:44] LABS: Magnesium 1.5 mg/dL (1.6-2.3)
[2024-10-08] MEDS: POTASSIUM CHLORIDE 20 MEQ PACKET (FOR LIQUID) 40 MEQ PO (19:00)
[2024-10-08 19:27] VITALS: BP 189/70; PULSE 53; RESP 18; O2SAT 100
[2024-10-08] MEDS: MAGNESIUM SULF 2 GM/WATER 50ML 2 GM/50 ML BAG IVPB (19:48)
--- NOTE | 2024-10-08 19:50 | PC.NURSE ---
pt refusing to drink potassium. pt requesting potassium pill. EDP made aware
[2024-10-08 21:05] LABS: Add Urine Microscopic? YES; Appearance Urine Clear (Clear); Glucose Urine UA Negative (Negative); Leukocyte Esterase Ur 1+ LEU/UL (Negative); Need Manual Microscopic Reviewed; Nitrate Urine Negative (Negative); Non Pathogenic Casts 0-2; Specific Grav Ur 1.009 (1.001-1.035)
[2024-10-08] MEDS: POTASSIUM CHLORIDE 20 MEQ ER TABLET 40 MEQ PO (21:37)
[2024-10-08 22:36] VITALS: BP 183/76; PULSE 60; RESP 17; O2SAT 96
[2024-10-08 22:37] VITALS: BP 183/76; PULSE 60; RESP 17; O2SAT 96
== END 2024-10-08 22:39 | disposition home or self-care (01) ==
PROVIDERS: Emergency Provider Physician Assistant
DX: R42 Dizziness and giddiness (principal); E83.42 Hypomagnesemia; E87.6 Hypokalemia; R00.1 Bradycardia, unspecified; I12.9 Hypertensive chronic kidney disease with stage 1 through stage 4 chronic kidney disease, or unspecified chronic kidney disease; N18.30 Chronic kidney disease, stage 3 unspecified; M32.9 Systemic lupus erythematosus, unspecified; J45.909 Unspecified asthma, uncomplicated; E78.5 Hyperlipidemia, unspecified; I25.10 Atherosclerotic heart disease of native coronary artery without angina pectoris; R82.998 Other abnormal findings in urine
CPT/HCPCS: 36415; 70450; 71046; 80053; 81001; 83735; 84484; 85025; 85610; 85730; 87086; 93005; 96361; 96365; 96366; 96375; 99284; A9270; J2405; J3475; J7040

== ENCOUNTER 2024-11-26 14:16 | Outpatient (CLI) | payer MEDICARE, OTHER, SELFPAY ==
--- NOTE | ~2024-11-26 | MM_ITS ---
EXAMINATION: MM screening jose m BI w scar HISTORY: Screening TECHNIQUE: Craniocaudal and mediolateral oblique 3-D tomosynthesis images were obtained and synthetic 2-D images were generated. CAD analysis was submitted and interpreted. COMPARISON: Comparison to multiple prior studies sequentially, with oldest reviewed study dated , 09/28/2014 BREAST PARENCHYMAL COMPOSITION: There are scattered areas of fibroglandular density. FINDINGS: There is no evidence of suspicious mass, calcification, or architectural distortion to suggest malignancy in either breast. IMPRESSION: 1. No mammographic evidence of malignancy. 2. Recommend routine screening mammography in one year. BI-RADS Category 1: Negative Reviewed, dictated and finalized at location B.
== END 2024-11-26 14:17 | disposition home or self-care (01) ==
PROVIDERS: PCP Internal Medicine; Visit Provider Obstetrics & Gynecology
DX: Z12.31 Encounter for screening mammogram for malignant neoplasm of breast (principal)
CPT/HCPCS: 77063; 77067

== ENCOUNTER 2024-12-13 13:07 | Outpatient (CLI) | payer MEDICARE, OTHER, SELFPAY ==
--- NOTE | ~2024-12-13 | DEXA_ITS ---
Bone Density Report Name: HAYDEE BOLANOS Age: 74 Sex: Female Ethnicity: Black Date of : 1950 Indication: osteopenia; monitoring treatment; height loss; asthma or emphysema; Referring Provider: BRIGIDA BAUTISTA Study: Bone densitometry was performed. Exam Date: December 13, 2024 Accession number: [id number] Bone Density: Region BMD T-score Z-score Classification AP Spine(L2, L3, L4) 1.096 0.2 1.7 Normal Femoral Neck (Left) 0.630 -2.0 -0.8 Osteopenia Total Hip (Left) 0.758 -1.5 -0.6 Osteopenia Femoral Neck (Right) 0.699 -1.4 -0.3 Osteopenia Total Hip (Right) 0.734 -1.7 -0.7 Osteopenia Total Hip Mean 0.746 -1.6 -0.7 Osteopenia World Health Organization criteria for BMD impression classify patients as: Normal (T-score at or above -1.0), Osteopenia (T-score between -1.0 and -2.5), or Osteoporosis (T-score at or below -2.5). 10-year Fracture Risk: FRAX not reported because: Treated for osteoporosis Previous Exams: -- Region Exam Age BMD T-score BMD Change BMD Change Date g/cm2 vs Baseline vs Previous -- AP Spine (L2-L4) 12/13/2024 74 1.096 0.2 5.6%* 1.8% 02/28/2023 72 1.076 0.0 3.7%* 3.6%* 04/16/2020 69 1.039 -0.4 0.1% -1.2% 02/04/2018 67 1.051 -0.3 1.3% -0.2% 06/26/2015 64 1.053 -0.2 1.5% 0.3% 08/12/2012 62 1.050 -0.3 1.2% 1.2% 01/16/2010 59 1.038 -0.4 Total Hip(Left) 12/13/2024 74 0.758 -1.5 -2.5% -1.3% 02/28/2023 72 0.768 -1.4 -1.2% -0.1% 04/16/2020 69 0.769 -1.4 -1.1% 0.9% 02/04/2018 67 0.762 -1.5 -1.9% 0.4% 06/26/2015 64 0.760 -1.5 -2.3% -6.6%* 08/12/2012 62 0.814 -1.1 4.7%* 4.7%* 01/16/2010 59 0.777 -1.3 Total Hip(Right) 12/13/2024 74 0.734 -1.7 -7.4%* -4.6%* 02/28/2023 72 0.770 -1.4 -2.9% 0.0% 04/16/2020 69 0.769 -1.4 -2.9% -1.0% 02/04/2018 67 0.777 -1.4 -2.0% 0.2% 06/26/2015 64 0.775 -1.4 -2.2% -7.5%* 08/12/2012 62 0.838 -0.9 5.7%* 5.7%* 01/16/2010 59 0.793 -1.2 -- *Denotes significance at 95% confidence level, LSC for AP Spine = 0.022 g/cm2, LSC for Total Hip = 0.027 g/cm2 Rate of change results reflect vertebral levels common to all scans Clinical Information Provided by Patient: Is being treated for osteoporosis Has used the following medications: Boniva (i.e. ibandronate), Vitamin D Has the following medical conditions: Asthma or Emphysema Patient maximum height was 59 Menopause Age: 49 No regular weight bearing exercise Drinks caffeinated beverages Onset of menses at age 15 Number of children 2 Impression: The patient has low bone mass, based on the Left Femoral Neck T-score. The BMD for the Total Hip(Right) decreased, changing by -4.6% since the last DXA exam. Discussion: SIGNIFICANT BONE LOSS OBSERVED. Adherence to therapy (including calcium and vitamin D intake) should be assessed. If compliance is not a factor, review management and exclusion of secondary causes of bone loss. It is important to ask patients whether they are taking their medications and to encourage continued and appropriate compliance with their osteoporosis therapies to reduce fracture risk. It is also important to review their risk factors and encourage appropriate calcium and vitamin D intakes, exercise, fall prevention and other lifestyle measures. Follow-Up: Consider a repeat BMD and Vertebral Fracture Assessment (VFA) exam in 2 years or sooner if medically necessary, to reassess this patient's status. Reported by: KESHAV on 12/13/2024 1:35:00 PM. Reviewed, dictated and finalized at location A.
== END 2024-12-13 13:08 | disposition home or self-care (01) ==
PROVIDERS: PCP Internal Medicine; Visit Provider Obstetrics & Gynecology
DX: Z78.0 Asymptomatic menopausal state (principal); M85.852 Other specified disorders of bone density and structure, left thigh; M85.851 Other specified disorders of bone density and structure, right thigh
CPT/HCPCS: 77080